=== PATIENT | female | born 1975 | race Caucasian/White ===

== ENCOUNTER 2016-08-25 10:56 | Emergency (ER) | payer MEDICARE, MEDICAID ==
[2016-08-25 11:40] VITALS: BP 124/79
--- NOTE | 2016-08-25 11:58 | UC ---
[facility] Dental HPI - HPI Summary HPI Summary: complaint of dental pain that started yesterday pain has increased upper right jaw and has broken tooth continuously painful has been taking ibuprofen with some relief denies fever and chills - History of Current Complaint Chief Complaint: UCDentalProblem Stated Complaint: TOOTH PAIN Time Seen by Provider: 08/25/16 11:54 Hx Last Menstrual Period: 08/05/16 Aggravating: Heat, Chewing Alleviating: OTC Meds - Allergies/Home Medications Allergies/Adverse Reactions: Allergies Allergy/AdvReac Type Severity Reaction Status Date / Time Butalbital [From Phrenilin] Allergy Mild Rash Verified 08/25/16 11:40 PMH/Surg Hx/FS Hx/Imm Hx Endocrine History Of: Denies: Diabetes, Thyroid Disease Cardiovascular History Of: Reports: Cardiac Disorders - leaky valve, Hypertension Denies: Congestive Heart Failure Respiratory History Of: Denies: COPD, Asthma GI/ History Of: Denies: Ulcer, Renal Disease Neurological History Of: Reports: Seizures Psychological History Of: Reports: Depression - Surgical History Surgical History: None - Family History Known Family History: Positive: Cardiac Disease, Hypertension, Diabetes, Other - father - pancreatic cancer - Social History Occupation: Disabled Lives: With Family Alcohol Use: None Substance Use Type: None Smoking Status (MU): Heavy Every Day Tobacco Smoker Type: Cigarettes Amount Used/How Often: 1 ppd or less Household Exposure Type: Cigarettes Cessation Counseling: Patient Advised to Stop - Immunization History Most Recent Influenza Vaccination: doesn't get Review of Systems Constitutional: Negative Skin: Negative Eyes: Negative ENT: Dental Pain Respiratory: Negative Cardiovascular: Negative Gastrointestinal: Negative Genitourinary: Negative Motor: Negative Neurovascular: Negative Musculoskeletal: Negative Neurological: Negative Psychological: Negative All Other Systems Reviewed And Are Negative: Yes Physical Exam Triage Information Reviewed: Yes Appearance: No Pain Distress, Well-Nourished Vital Signs: Initial Vital Signs Temp 99 F 08/25/16 11:33 Pulse 74 08/25/16 11:33 Resp 20 08/25/16 11:33 BP 124/79 08/25/16 11:33 Pulse Ox 100 08/25/16 11:33 Vital Signs Reviewed: Yes Eyes: Positive: Conjunctiva Clear ENT: Positive: Pharynx normal, TMs normal. Negative: Nasal congestion Dental: Positive: Abscess @ - 4 Respiratory: Positive: Lungs clear, Normal breath sounds, No respiratory distress Cardiovascular: Positive: RRR, No Murmur Abdomen Description: Positive: Nontender, Soft Bowel Sounds: Positive: Present Musculoskeletal: Positive: No Edema Neurological: Positive: Alert Psychological Exam: Normal Skin Exam: Normal Dental Complaint Course/Dx - Differential Dx/Diagnosis Differential Diagnosis/Dx: Dental Abscess, Dental Caries Provider Diagnoses: dental abscess Discharge - Discharge Plan Condition: Stable Disposition: HOME Prescriptions: Amoxicillin CAP* 500 mg PO Q12H #20 cap Naproxen TAB* [Naprosyn TAB*] 500 mg PO Q12H PRN #20 tab PRN Reason: Pain Patient Education Materials: Dental Abscess (ED) Referrals: Gisel Harrington MD [Primary Care Provider] - Additional Instructions: Please take antibiotic as directed. call dentist for further evaluation and treatment. Increase fluids and rest Please review your discharge instructions. If your symptoms do not improve please call your primary care provider or return to urgent care. DENTAL PAIN What Causes Dental Pain? Cavities (tooth decay) are the most common cause of dental pain. Cavities usually happen because of poor oral hygiene, causing bacteria to build up and form plaque. Plaque breaks down the tooth enamel and leads to cavities. If untreated, cavities can lead to tooth abscesses, gum disease, and, finally, loss of the tooth. Prevention of tooth decay is the best way to avoid toothaches. Symptoms Might Include: Aching or sharp pain in the tooth Sensitivity to hot or cold foods and fluids Pain, redness or swelling of the gums Swelling of the face or jaw Treatment Recommendations: Take acetaminophen (Tylenol?) or ibuprofen (Motrin, Advil?) for pain unless you have had a problem with one of the medicines in the past. The healthcare provider may have prescribed an antibiotic medicine. The medicine should be taken until it is completely gone, even if you are feeling better. If you stop taking the medicine early, the infection may not be completely gone, and the medication may not work the next time. Do not place pain-killing tablets on any aching tooth or gum it can cause severe gilbert on the gum. Call Your Doctor or Return Here IF: You start to have severe pain. You start to have swelling in your face or neck. You start to a have fever. You start to have difficulty speaking or swallowing. You have any other new symptoms that worry you.
== END 2016-08-25 12:26 | disposition home or self-care (01) ==
LOC: UCEAST 10:56
DX: K04.7 Periapical abscess without sinus (principal); F17.210 Nicotine dependence, cigarettes, uncomplicated
CPT/HCPCS: 99212; G0463

== ENCOUNTER 2016-08-27 15:28 | Emergency (ER) | payer MEDICARE, MEDICAID ==
[2016-08-27 15:34] VITALS: BP 139/84
[2016-08-27] MEDS ORDERED: Ketorolac INJ* 60 MG/2 ML VIAL IM ONE (16:25)
--- NOTE | 2016-08-27 18:16 | UC ---
Dental HPI - HPI Summary HPI Summary: Patient is a 41yo female with a CC of dental pain and abscess on the right upper jaw. She was seen in 2 days ago, given amoxicillin and naproxen. Patient states neither medication are working and one medication is giving her a "rash." Patient states she gets dental infections every year d/t her broken teeth and a partial which must sit atop of the broken tooth. She is unable to get the tooth fixed d/t medicaid not being accepted at any dental clinics in [place]. She is requesting an antibiotic which needs to be taken 4x daily and states anything less never works for her. She also states the naproxen given to her for pain does not work and she would like stronger pain medications. Denies MELENDREZ, fever. Associates some sinus pressure over the right maxilla with the toothache. - History of Current Complaint Hx Obtained From: Patient Hx Last Menstrual Period: 08/05/16 ?: No Onset/Duration: Gradual Onset Severity: Moderate Pain Intensity: 6 Pain Scale Used: 0-10 Numeric Aggravating: Cold, Chewing Alleviating: Nothing Related History: Previous Dental Care on Same Tooth Dental: 1 - broken/infected tooth <Rubina Grace - Last Filed: 08/27/16 18:10> <Samy Castrejon - Last Filed: 08/27/16 19:04> - History of Current Complaint Chief Complaint: EDDentalPain Stated Complaint: DENTAL PAIN - Allergies/Home Medications Allergies/Adverse Reactions: Allergies Allergy/AdvReac Type Severity Reaction Status Date / Time Butalbital [From Phrenilin] Allergy Mild Rash Verified 08/25/16 11:40 PMH/Surg Hx/FS Hx/Imm Hx Endocrine History Of: Denies: Diabetes, Thyroid Disease Cardiovascular History Of: Reports: Cardiac Disorders - leaky valve, Hypertension Denies: Congestive Heart Failure Respiratory History Of: Denies: COPD, Asthma GI/ History Of: Denies: Ulcer, Renal Disease Neurological History Of: Reports: Seizures Psychological History Of: Reports: Depression - Surgical History Surgical History: None - Family History Known Family History: Positive: Cardiac Disease, Hypertension, Diabetes, Other - father - pancreatic cancer - Social History Alcohol Use: None Substance Use Type: None Smoking Status (MU): Heavy Every Day Tobacco Smoker Type: Cigarettes Amount Used/How Often: 1 ppd or less Have You Smoked in the Last Year: Yes Household Exposure Type: Cigarettes - Immunization History Most Recent Influenza Vaccination: doesn't get <Rubina Grace - Last Filed: 08/27/16 18:10> Review of Systems Constitutional: Negative Skin: Negative Eyes: Negative ENT: Dental Pain, Other - right sided maxillary pain Cardiovascular: Negative Neurovascular: Negative Musculoskeletal: Negative Neurological: Negative Psychological: Negative All Other Systems Reviewed And Are Negative: Yes <Rubina Grace - Last Filed: 08/27/16 18:10> Physical Exam Triage Information Reviewed: Yes Appearance: Well-Appearing, No Pain Distress, Well-Nourished Vital Signs: Initial Vital Signs Temp 97.3 F 08/27/16 15:30 Pulse 89 08/27/16 15:30 Resp 16 08/27/16 15:30 BP 139/84 08/27/16 15:30 Pulse Ox 100 08/27/16 15:30 Vital Signs Reviewed: Yes Eye Exam: Normal Eyes: Positive: Conjunctiva Clear ENT: Positive: Pharynx normal, Other: - denies ear pain Dental: Positive: Percussion Tenderness @ - over maxillary sinus on right side, Gross Decay/Caries @ - all, Dental Fracture @ - upper right, Abscess @ - upper right Neck exam: Normal Neck: Positive: Supple, No Lymphadenopathy Respiratory Exam: Normal Respiratory: Positive: Chest non-tender Cardiovascular Exam: Normal Musculoskeletal Exam: Normal Musculoskeletal: Positive: Strength Intact, ROM Intact Neurological Exam: Normal Neurological: Positive: Alert Psychological: Positive: Age Appropriate Behavior Skin: Positive: rashes - small petechia over dorsum over hands bilaterally, no other rashes noted <Rubina Grace - Last Filed: 08/27/16 18:10> Vital Signs: Initial Vital Signs Temp 97.3 F 08/27/16 15:30 Pulse 89 08/27/16 15:30 Resp 16 08/27/16 15:30 BP 139/84 08/27/16 15:30 Pulse Ox 100 08/27/16 15:30 <Samy Castrejon - Last Filed: 08/27/16 19:04> Dental Complaint Course/Dx - Course Course Of Treatment: Patient educated about importance of dental checkups, mouth hygiene and current dentists who accept medicaid around the area. Patient eduated regarding pain management with chronic dental pain. Provider will give Toradol for pain and change antibiotics to Clindamycin d/t patient request and recent skin reaction noted on hands which might be affiliated with the amoxicillin medication. Patient agrees and DC'd. - Differential Dx/Diagnosis Differential Diagnosis/Dx: Dental Abscess, Dental Caries, Fractured Tooth Provider Diagnoses: Dental pain, Dental Fx, Dental infection - Physician Notification/Consults Instructed by Provider To: Have Pt Call For Appt. - dentist <Rubina Grace - Last Filed: 08/27/16 18:10> Discharge <Rubina Grace - Last Filed: 08/27/16 18:10> <Samy Castrejon - Last Filed: 08/27/16 19:04> - Discharge Plan Condition: Stable Disposition: HOME Prescriptions: Clindamycin Cap(NF) [Cleocin 300 mg Cap(NF)] 300 mg PO TID #20 cap MDD 4 Clindamycin Cap(NF) [Cleocin 300 mg Cap(NF)] 300 mg PO Q6H #20 cap MDD 4 Ketorolac TAB (NF) [Toradol TAB (NF)] 10 mg PO Q6H PRN #20 tab MDD 40 PRN Reason: Pain Ketorolac TAB (NF) [Toradol TAB (NF)] 10 mg PO Q6H #16 tab MDD 4 Patient Education Materials: Clindamycin (By mouth), Dental Abscess (ED) Referrals: Gisel Harrington MD [Primary Care Provider] - Additional Instructions: May take Toradol 4 times daily for up to 5 days. Take clindamycin 4 times daily with meals. Follow up with dentist as outpatient.
--- NOTE | 2016-08-27 19:04 | UC ---
Dental HPI - HPI Summary HPI Summary: Patient is a 41yo female with a CC of dental pain and abscess on the right upper jaw. She was seen in 2 days ago, given amoxicillin and naproxen. Patient states neither medication are working and one medication is giving her a "rash." Patient states she gets dental infections every year d/t her broken teeth and a partial which must sit atop of the broken tooth. She is unable to get the tooth fixed d/t medicaid not being accepted at any dental clinics in [place]. She is requesting an antibiotic which needs to be taken 4x daily and states anything less never works for her. She also states the naproxen given to her for pain does not work and she would like stronger pain medications. Denies MELENDREZ, fever. Associates some sinus pressure over the right maxilla with the toothache. - History of Current Complaint Chief Complaint: EDDentalPain Stated Complaint: DENTAL PAIN Hx Obtained From: Patient Hx Last Menstrual Period: 08/05/16 ?: No Onset/Duration: Gradual Onset Severity: Moderate Pain Intensity: 6 Pain Scale Used: 0-10 Numeric Aggravating: Cold, Chewing Alleviating: Nothing Related History: Previous Dental Care on Same Tooth - Allergies/Home Medications Allergies/Adverse Reactions: Allergies Allergy/AdvReac Type Severity Reaction Status Date / Time Butalbital [From Phrenilin] Allergy Mild Rash Verified 08/25/16 11:40 PMH/Surg Hx/FS Hx/Imm Hx Endocrine History Of: Denies: Diabetes, Thyroid Disease Cardiovascular History Of: Reports: Cardiac Disorders - leaky valve, Hypertension Denies: Congestive Heart Failure Respiratory History Of: Denies: COPD, Asthma GI/ History Of: Denies: Ulcer, Renal Disease Neurological History Of: Reports: Seizures Psychological History Of: Reports: Depression - Surgical History Surgical History: None - Family History Known Family History: Positive: Cardiac Disease, Hypertension, Diabetes, Other - father - pancreatic cancer - Social History Alcohol Use: None Substance Use Type: None Smoking Status (MU): Heavy Every Day Tobacco Smoker Type: Cigarettes Amount Used/How Often: 1 ppd or less Have You Smoked in the Last Year: Yes Household Exposure Type: Cigarettes - Immunization History Most Recent Influenza Vaccination: doesn't get Review of Systems Constitutional: Negative Skin: Negative Eyes: Negative ENT: Dental Pain, Other - right sided maxillary pain Cardiovascular: Negative Neurovascular: Negative Musculoskeletal: Negative Neurological: Negative Psychological: Negative All Other Systems Reviewed And Are Negative: Yes Physical Exam Triage Information Reviewed: Yes Appearance: Well-Appearing, No Pain Distress, Well-Nourished Vital Signs: Initial Vital Signs Temp 97.3 F 08/27/16 15:30 Pulse 89 08/27/16 15:30 Resp 16 08/27/16 15:30 BP 139/84 08/27/16 15:30 Pulse Ox 100 08/27/16 15:30 Vital Signs Reviewed: Yes Eye Exam: Normal Eyes: Positive: Conjunctiva Clear ENT: Positive: Pharynx normal, Other: - denies ear pain Dental: Positive: Percussion Tenderness @ - over maxillary sinus on right side, Gross Decay/Caries @ - all, Dental Fracture @ - upper right, Abscess @ - upper right Neck exam: Normal Neck: Positive: Supple, No Lymphadenopathy Respiratory Exam: Normal Respiratory: Positive: Chest non-tender Cardiovascular Exam: Normal Musculoskeletal Exam: Normal Musculoskeletal: Positive: Strength Intact, ROM Intact Neurological Exam: Normal Neurological: Positive: Alert Psychological: Positive: Age Appropriate Behavior Skin: Positive: rashes - small petechia over dorsum over hands bilaterally, no other rashes noted Dental Complaint Course/Dx - Course Course Of Treatment: Patient educated about importance of dental checkups, mouth hygiene and current dentists who accept medicaid around the area. Patient eduated regarding pain management with chronic dental pain. Provider will give Toradol for pain and change antibiotics to Clindamycin d/t patient request and recent skin reaction noted on hands which might be affiliated with the amoxicillin medication. Patient agrees and DC'd. - Differential Dx/Diagnosis Differential Diagnosis/Dx: Fractured Tooth, Odontogenic Pain, Peridontic Disease Provider Diagnoses: dental pain, dental caries, fractured tooth - Physician Notification/Consults Instructed by Provider To: Have Pt Call For Appt. - dentist Discharge - Discharge Plan Condition: Stable Disposition: HOME Prescriptions: Clindamycin Cap(NF) [Cleocin 300 mg Cap(NF)] 300 mg PO TID #20 cap MDD 4 Clindamycin Cap(NF) [Cleocin 300 mg Cap(NF)] 300 mg PO Q6H #20 cap MDD 4 Ketorolac TAB (NF) [Toradol TAB (NF)] 10 mg PO Q6H PRN #20 tab MDD 40 PRN Reason: Pain Ketorolac TAB (NF) [Toradol TAB (NF)] 10 mg PO Q6H #16 tab MDD 4 Patient Education Materials: Clindamycin (By mouth), Dental Abscess (ED) Referrals: Gisel Harrington MD [Primary Care Provider] - Additional Instructions: May take Toradol 4 times daily for up to 5 days. Take clindamycin 4 times daily with meals. Follow up with dentist as outpatient.
== END 2016-08-27 16:42 | disposition home or self-care (01) ==
LOC: ED 15:28
DX: K04.7 Periapical abscess without sinus (principal); F17.210 Nicotine dependence, cigarettes, uncomplicated; K03.81 Cracked tooth
CPT/HCPCS: 96372; 99282; J1885

== ENCOUNTER 2019-01-07 16:16 | Emergency (ER) | payer MEDICARE, MEDICAID ==
--- OUTSIDE RECORDS SUMMARY | 2019-01-07 16:35 | XMS REPORT | Continuity of Care Document ---
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 [address] PayID: [id number] RALPH Feliciano [id number] Effective: 2016 Policy Number: Medicare - Bswny Umd Annetta Chávez [id number] PayID: [id number] [address] [place] [address] Policy Number: [id number] Medicaid/Computer [employer] Annetta Chávez Group Name: 1 1 [address] PayID: [id number] [place] [address] Advance Directives Description No Information Available Problems Description No Information Family History Date Family Member(s) Observation Comments : (age 55 Father due to Cancer, Years) Pancreatic Father due to Hypertension () Mother Hypertension Mother Diabetes Mother Rheumatoid Arthritis Mother HX Of Lymes Disease Mother Asthma Mother Sleep Apnea Mother Overweight age 56 Social History Type Date Description Comments Sex Unknown Marital Status Single Lives With Son Diet Healthy, Well Balanced 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 Tobacco Use Start: Unknown currently smokes 1/2 Pack Daily ETOH Use Rare Alcohol Use Once Every 3-4 Months Recreational Drug Use Denies Drug Use Recreational Drug Use Former Drug User Recreational Drug Use Formerly used Marijuana sporadically Tobacco Use Start: Unknown Patient is a current smoker, smokes every day Smoking Status Reviewed: 05/05/17 Patient is a current smoker, smokes every day Exercise Type/Frequency exercises regularly Seat Belt/Car Seat always uses seat belt Currently Active sexually active Contraceptive Methods Current .None # Partners in a Lifetime 4 STD's No STD History Allergies, Adverse Reactions, Alerts Active Allergies Reaction Severity Comments Date Phrenilin 01/31/2017 Inactive Allergies NKDA 05/17/2003 Medications Active Medications SIG Qnty Indications Ordering Provider Date Apri 1 by mouth every 168tabs Briana Skinner, 05/05/2017 0.15-30mg-mcg day for three FIELD MARKETING SPECIALIST-C Tablets weeks then start a new pack Lisinopril Take One Tablet 90tabs Marely Mcclain, 20mg Tablets By Mouth Every M.D., R.D. Day Lamotrigine 1 tab by mouth Lorin Lee, 100mg twice daily. 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 max twice a day Naproxen one tab by mouth 60tabs M54.5 Channingwnti R. 11/17/2017 - 500mg Tablets twice daily with Storm, FIELD MARKETING SPECIALIST-C 12/12/2018 food for pain/inflammation Cyclobenzaprine HCL 1 by mouth three 30tabs M54.5 Channingwnti R. 11/17/2017 - 5mg times a day for Storm, FIELD MARKETING SPECIALIST-C 12/12/2018 Tablets muscle spasm, may cause drowsiness Prenatabs Rx 1 PO Daily 90tabs Z00.00 Channingwnti R. 05/05/2017 - 29-1mg Storm, FIELD MARKETING SPECIALIST-C 12/12/2018 Tablets Oxycodone HCL Unknown - 5mg Tablets 05/05/2017 Remeron 1 tab by mouth Unknown - 15mg Tablets every day 05/23/2017 Seroquel 1 by mouth every Unknown - 150mg Tablets night at bedtime 05/23/2017 Baclofen 1 a day as needed Arnaldo Stafford, - 10mg Tablets 05/05/2017 Celebrex take one capsule StaffordArnaldo wong, - 200mg Capsules by mouth a day 05/05/2017 for pain and arthritis Oliva Take 1 Tablet By Unknown - 30mg Tablets Mouth Once as 05/05/2017 Soon as Possible Within 5 Days After Un Immunizations CPT Code Status Date Vaccine Lot # [id number] Given 12/12/2018 Tdap (Adacel) [id number] Refused 12/12/2018 Influenza Virus Vaccine, Quadrivalent, 3 Yr > Quad , Preserv Free [id number] Refused 01/31/2017 Influenza Virus Vaccine, Quadrivalent, 3 Yr > Quad , Preserv Free Vital Signs Date Vital Result Comment 12/12/2018 3:29pm Weight 184.00 lb Weight 83.462 kg BP Systolic 120 mmHg BP Diastolic 80 mmHg Heart Rate 70 /min Body Temperature 98.5 F Respiratory Rate 16 /min Height 69 inches 5'9" BMI (Body Mass Index) 27.2 kg/m2 12/06/2017 3:00pm Weight 170.00 lb Weight 77.112 kg BP Systolic 124 mmHg BP Diastolic 78 mmHg Heart Rate 72 /min Body Temperature 98.5 F Respiratory Rate 16 /min 11/17/2017 1:19pm Weight 164.00 lb Weight 74.390 kg BP Systolic 112 mmHg BP Diastolic 72 mmHg Heart Rate 80 /min Body Temperature 99.3 F Respiratory Rate 16 /min Height 69 inches 5'9" BMI (Body Mass Index) 24.2 kg/m2 05/23/2017 3:45pm Weight 180.00 lb Weight 81.648 kg BP Systolic 120 mmHg BP Diastolic 70 mmHg Heart Rate 64 /min Body Temperature 98.5 F Respiratory Rate 14 /min 05/05/2017 1:30pm Weight 190.00 lb Weight 86.184 kg BP Systolic 110 mmHg BP Diastolic 60 mmHg Heart Rate 64 /min Body Temperature 98.2 F Respiratory Rate 14 /min Height 69.5 inches 5'9.50" BMI (Body Mass Index) 27.7 kg/m2 01/31/2017 10:46am Weight 214.00 lb Weight 97.070 kg BP Systolic 100 mmHg BP Diastolic 60 mmHg Heart Rate 78 /min Body Temperature 97.5 F Respiratory Rate 16 /min Height 70 inches 5'10" BMI (Body Mass Index) 30.7 kg/m2 05/17/2003 1:49pm Weight 206.00 lb Weight 93.442 kg BP Systolic 120 mmHg BP Diastolic 80 mmHg Heart Rate 68 /min Respiratory Rate 18 /min Height 68.50 inches BMI (Body Mass Index) 30.9 kg/m2 Last Menstrual Period [id number] Results Test Date Facility Test Result H/L Range Note CBC Auto Diff 02/23/2018 [facility] White Blood 6.9 10^3/uL N 3.5-10.8 [phone] Count Red Blood Count 4.41 10^6/uL N 4.00-5.40 Hemoglobin 13.7 g/dL N 12.0-16.0 Hematocrit 41 % N 35-47 Mean Corpuscular Volume 92 fL N 80-97 Mean Corpuscular Hemoglobin 31 pg N 27-31 Mean Corpuscular HGB Conc 34 g/dL N 31-36 Red Cell Distribution Width 14 % N 10.5-15 Platelet Count 199 10^3/uL N 150-450 Mean Platelet Volume 7.8 um3 N 7.4-10.4 Abs Neutrophils 4.5 10^3/uL N 1.5-7.7 Abs Lymphocytes 1.7 10^3/uL N 1.0-4.8 Abs Monocytes 0.5 10^3/uL N 0-0.8 Abs Eosinophils 0.2 10^3/uL N 0-0.6 Abs Basophils 0 10^3/uL N 0-0.2 Abs Nucleated RBC 0 10^3/uL Granulocyte % 65.9 % N 38-83 Lymphocyte % 24.3 % Low 25-47 Monocyte % 7.1 % High 0-7 Eosinophil % 2.2 % N 0-6 Basophil % 0.5 % N 0-2 Nucleated Red Blood Cells % 0 Comp Metabolic Panel 02/23/2018 [facility] Sodium 140 mmol/L N 135-145 [phone] Potassium 4.6 mmol/L N 3.5-5.0 Chloride 111 mmol/L N 101-111 Co2 Carbon Dioxide 24 mmol/L N 22-32 Anion Gap 5 mmol/L N 2-11 Glucose 123 mg/dL High 70-100 Blood Urea Nitrogen 16 mg/dL N 6-24 Creatinine 1.10 mg/dL High 0.51-0.95 BUN/Creatinine Ratio 14.5 N 8-20 Calcium 9.0 mg/dL N 8.6-10.3 Total Protein 5.9 g/dL Low 6.4-8.9 Albumin 3.4 g/dL N 3.2-5.2 Globulin 2.5 g/dL N 2-4 Albumin/Globulin Ratio 1.4 N 1-3 Total Bilirubin 0.40 mg/dL N 0.2-1.0 Alkaline Phosphatase 56 U/L N 34-104 Alt 17 U/L N 7-52 Ast 18 U/L N 13-39 Egfr Non- 54.7 >60 Egfr 66.2 >60 1 Laboratory 02/23/2018 [facility] Lamotrigine 0.5 Abnormal 2.5 - 2 test finding [phone] (Lamictal) g/mL 15.0 Topiramate 4.5 g/mL 3 Iron & Iron Binding 12/06/2017 [facility] Iron 35 g /dL Low 50-212 Capacity [phone] Unsaturated Iron Binding 392 g/dL Total Iron Binding Capacity 427 g/dL N 250-450 Transferrin 305 mg/dL N 203-362 % Iron Saturation 8 % Low 15-55 Urine DIP 12/06/2017 In House Lab Leukocytes neg Neg (607)- - Urine Nitrites neg Neg Urobilinogen norm Norm Total Protein, Urine neg Neg Urine pH 7 High 5-6 Urine Blood neg Neg Specific [place] 1.005 Low 1.01-1.02 Urine Ketones neg Neg Urine Bilirubin neg Neg Urine Glucose norm Norm Laboratory test 12/06/2017 [facility] Ferritin 31.2 ng/mL N 11-307 4 finding [phone] Comp Metabolic 12/06/2017 [facility] Sodium 141 mmol/ L N 139-145 Panel [phone] Potassium 4.0 mmol/L N 3.5-5.0 Chloride 108 mmol/L N 101-111 Co2 Carbon Dioxide 26 mmol/L N 22-32 Anion Gap 7 mmol/L N 2-11 Glucose 99 mg/dL N 70-100 Blood Urea Nitrogen 11 mg/dL N 6-24 Creatinine 0.99 mg/dL High 0.51-0.95 BUN/Creatinine Ratio 11.1 N 8-20 Calcium 9.1 mg/dL N 8.6-10.3 Total Protein 6.2 g/dL Low 6.4-8.9 Albumin 3.6 g/dL N 3.2-5.2 Globulin 2.6 g/dL N 2-4 Albumin/Globulin Ratio 1.4 N 1-3 Total Bilirubin 0.30 mg/dL N 0.2-1.0 Alkaline Phosphatase 58 U/L N 34-104 Alt 25 U/L N 7-52 Ast 19 U/L N 13-39 Egfr Non- 61.8 >60 Egfr 79.5 >60 5 Laboratory test 12/06/2017 [facility] Vitamin D 40.7 ng/mL N 20-50 6 finding [phone] Total 25(Oh) Vitamin B12 363 pg/mL N 180-914 7 CBC Auto Diff 12/06/2017 [facility] White Blood 6.6 10^3/uL N 3.5-10.8 [phone] Count Red Blood Count 4.23 10^6/uL N 4.0-5.4 Hemoglobin 13.3 g/dL N 12.0-16.0 Hematocrit 39 % N 35-47 Mean Corpuscular Volume 93 fL N 80-97 Mean Corpuscular Hemoglobin 32 pg High 27-31 Mean Corpuscular HGB Conc 34 g/dL N 31-36 Red Cell Distribution Width 13 % N 10.5-15 Platelet Count 170 10^3/uL N 150-450 Mean Platelet Volume 9.2 um3 N 7.4-10.4 Abs Neutrophils 4.0 10^3/uL N 1.5-7.7 Abs Lymphocytes 1.8 10^3/uL N 1.0-4.8 Abs Monocytes 0.7 10^3/uL N 0-0.8 Abs Eosinophils 0.1 10^3/uL N 0-0.6 Abs Basophils 0 10^3/uL N 0-0.2 Abs Nucleated RBC 0 10^3/uL Granulocyte % 60.4 % N 38-83 Lymphocyte % 27.8 % N 25-47 Monocyte % 10.0 % High 0-7 Eosinophil % 1.3 % N 0-6 Basophil % 0.5 % N 0-2 Nucleated Red Blood Cells % 0 Laboratory test 04/28/2017 [facility] Vitamin D Total 35.9 ng/mL N 30-50 finding [phone] 25(Oh) Lipid Profile 04/28/2017 [facility] Triglycerides 110 mg/dL N 8 (Trig/Chol/HDL) [phone] Cholesterol 196 mg/dL N 9 HDL Cholesterol 55.7 mg/dL N 10 LDL Cholesterol 118 mg/dL N 11 Comp Metabolic Panel 04/28/2017 [facility] Sodium 139 mmol/L N 133-145 [phone] Potassium 3.9 mmol/L N 3.5-5.0 Chloride 110 mmol/L N 101-111 Co2 Carbon Dioxide 22 mmol/L N 22-32 Anion Gap 7 mmol/L N 2-11 Glucose 110 mg/dL High 70-100 Blood Urea Nitrogen 10 mg/dL N 6-24 Creatinine 1.03 mg/dL High 0.51-0.95 BUN/Creatinine Ratio 9.7 N 8-20 Calcium 9.7 mg/dL N 8.6-10.3 Total Protein 6.9 g/dL N 6.4-8.9 Albumin 4.1 g/dL N 3.2-5.2 Globulin 2.8 g/dL N 2-4 Albumin/Globulin Ratio 1.5 N 1-3 Total Bilirubin 0.40 mg/dL N 0.2-1.0 Alkaline Phosphatase 72 U/L N 34-104 Alt 21 U/L N 7-52 Ast 24 U/L N 13-39 Egfr Non- 59.3 N >60 Egfr 76.3 N >60 12 CBC Auto Diff 04/28/2017 [facility] White Blood 6.6 10^3/uL N 3.5-10.8 [phone] Count Red Blood Count 3.92 10^6/uL Low 4.0-5.4 Hemoglobin 11.2 g/dL Low 12.0-16.0 Hematocrit 35 % N 35-47 Mean Corpuscular Volume 89 fL N 80-97 Mean Corpuscular Hemoglobin 29 pg N 27-31 Mean Corpuscular HGB Conc 32 g/dL N 31-36 Red Cell Distribution Width 16 % High 10.5-15 Platelet Count 198 10^3/uL N 150-450 Mean Platelet Volume 9 um3 N 7.4-10.4 Abs Neutrophils 4.1 10^3/uL N 1.5-7.7 Abs Lymphocytes 1.7 10^3/uL N 1.0-4.8 Abs Monocytes 0.6 10^3/uL N 0-0.8 Abs Eosinophils 0.1 10^3/uL N 0-0.6 Abs Basophils 0 10^3/uL N 0-0.2 Abs Nucleated RBC 0.01 10^3/uL N Granulocyte % 62.7 % N 38-83 Lymphocyte % 26.0 % N 25-47 Monocyte % 8.7 % N 1-9 Eosinophil % 2.1 % N 0-6 Basophil % 0.5 % N 0-2 Nucleated Red Blood Cells % 0.1 N Laboratory test 05/17/2003 [facility] Thin Layer REC' D-SEE finding [phone] Pap W/Reflex IMAGE To HPV For ASCUS GC/Chlamydia 05/17/2003 [facility] Chlamydia By NEGATIVE Negative 13 Dna Probe [phone] Dna Probe GC By Dna Probe NEGATIVE Negative 14 Protime 05/17/2003 [facility] Inr 1.00 15 [phone] Protime 11.8 SEC 10.7-13.1 Laboratory test 05/17/2003 [facility] PTT (Aptt) 26.8 SEC 20.6-31.5 16 finding [phone] CBC With 05/17/2003 [facility] Platelet Count 239 CUMM 150-450 Electronic Diff [phone] White Blood Count 10.6 CUMM 4.8-10.8 Hematocrit 41 % 35-47 Hemoglobin 13.7 g/dL 12.0-16.0 Mean Corpuscular HGB Cone 33 g/dL 32-36 Mean Corpuscular Hemoglob 28 pg 27-31 Mean Corpuscular Volume 84 um3 79-97 Mean Platelet Volume 9.0 um3 7.4-10.4 Red Cell Count 4.92 CUMM 4.2-5.4 Redcell Distribution WDTH 16 % High 10.5-15 Comp Metabolic 05/17/2003 [facility] Anion Gap 9.0 mmol/L 2-11 17 Panel [phone] Albumin/Globulin Ratio 1.2 1-3 Albumin 4.0 GM/DL 3.6-5.4 Alkaline Phosphatase 66 U/L 30-110 Alt (SGPT) 24 U/L 14-54 Ast (Sgot) 32 U/L 12-42 BUN 4 mg/dL Low 6-24 Calcium 9.8 mg/dL 8.7-10.2 Chloride 107 mmol/L 101-111 Co2 (Carbon Dioxide) 24.0 mmol/L 22-32 Creatinine 1.0 mg/dL 0.5-1.4 Globulin 3.3 GM/DL 2-4 Glucose 93 mg/dL 70-105 Potassium 4.1 mmol/L 3.5-5.0 Sodium 140 mmol/L 135-145 Bilirubin Total 0.8 mg/dL 0.4-1.5 Total Protein 7.3 GM/DL 6.2-8.1 BUN/Creatinine Ratio 4.0 Low 8-20 Laboratory test 05/17/2003 [facility] TSH 0.09 MIU/ ML Low 0.34-5.60 finding [phone] CBC With Manual 05/17/2003 [facility] Anisocytosis 1 + Diff [phone] Eosenophil 1 % 0-6 Lymphocyte 22 % 5-47 Monocyte 4 % 0-13 Polysegmented Neutrophil 73 % 38-83 Laboratory test finding 05/17/2003 In House Lab Test, Urine NEG (607)- - Urine DIP 05/17/2003 In House Lab Leukocytes NEG Neg (607)- - Urine Nitrites NEG Neg Urine pH 5 5-6 Total Protein, Urine NEG Neg Urine Glucose NORM Norm Urine Ketones NEG Neg Urobolinogen NORM Norm Urine Bilirubin NEG Neg Urine Blood NEG Neg Laboratory test finding 05/17/2003 In House Lab Hemoglobin 12.6 (607)- - 1 Because ethnic data is not always readily available, this report includes an eGFR for both -Americans and non- Americans. The National Kidney Disease Education Program (NKDEP) does not endorse the use of the MDRD equation for patients that are not between the ages of 18 and 70, are , have extremes of body size, muscle mass, or nutritional status, or are non- or non-. According to the National Kidney Foundation, irrespective of diagnosis, the stage of the disease is based on the level of kidney function: Stage Description GFR(mL/min/1.73 m(2)) 1 Kidney damage with normal or decreased GFR 90 2 Kidney damage with mild decrease in GFR 60-89 3 Moderate decrease in GFR 30-59 4 Severe decrease in GFR 15-29 5 Kidney failure <15 (or dialysis) 2 ADDITIONAL INFORMATION This test was developed and its performance characteristics determined by [facility] in a manner consistent with CLIA requirements. This test has not been cleared or approved by the U.S. Food and Drug Administration. Test Performed by: [facility] [employer] - [address] [address] 3 REFERENCE VALUE Reference values depend on clinical use: Anticonvulsant: 5.0-20.0 mcg/mL Psychiatric: 2.0-8.0 mcg/mL ADDITIONAL INFORMATION This test was developed and its performance characteristics determined by [facility] in a manner consistent with CLIA requirements. This test has not been cleared or approved by the U.S. Food and Drug Administration. Test Performed by: [facility] [employer] - [address] [address] 4 [id number] 5 Because ethnic data is not always readily available, this report includes an eGFR for both -Americans and non- Americans. The National Kidney Disease Education Program (NKDEP) does not endorse the use of the MDRD equation for patients that are not between the ages of 18 and 70, are , have extremes of body size, muscle mass, or nutritional status, or are non- or non-. According to the National Kidney Foundation, irrespective of diagnosis, the stage of the disease is based on the level of kidney function: Stage Description GFR(mL/min/1.73 m(2)) 1 Kidney damage with normal or decreased GFR 90 2 Kidney damage with mild decrease in GFR 60-89 3 Moderate decrease in GFR 30-59 4 Severe decrease in GFR 15-29 5 Kidney failure <15 (or dialysis) 6 [id number] Normal Range 180 to 914 Indeterminate Range 145 to 180 Deficient Range <145 8 Desirable <150 Borderline high 150-199 High 200-499 Very High >500 9 Desirable <200 Borderline high 200-239 High >239 10 Low <40 Desirable: 40-60 High: >60 11 Desirable: <100 mg/dL Near Optimal: 100-129 mg/dL Borderline High: 130-159 mg/dL High: 160-189 mg/dL Very High: >189 mg/dL 12 Because ethnic data is not always readily available, this report includes an eGFR for both -Americans and non- Americans. The National Kidney Disease Education Program (NKDEP) does not endorse the use of the MDRD equation for patients that are not between the ages of 18 and 70, are , have extremes of body size, muscle mass, or nutritional status, or are non- or non-. According to the National Kidney Foundation, irrespective of diagnosis, the stage of the disease is based on the level of kidney function: Stage Description GFR(mL/min/1.73 m(2)) 1 Kidney damage with normal or decreased GFR 90 2 Kidney damage with mild decrease in GFR 60-89 3 Moderate decrease in GFR 30-59 4 Severe decrease in GFR 15-29 5 Kidney failure <15 (or dialysis) 13 * This method is approved for detection of Chlamydia trachomatis in Endocervical, Male Urethral and Conjunctival Specimens only. POSITIVE RESULT IN A POPULATION WITH LOW PREVALENCE OF DISEASE SHOULD BE INTERPRETED PRESUMPTIVE; INTERPRET RESULTS IN LIGHT OF HISTORY PHYSICAL FINDINGS . 14 * This method is approved for detection of Neisseria Gonnorrhoeae in Endocervical and Male Urethral Specimens only. POSITIVE RESULT IN A POPULATION WITH LOW PREVALENCE OF DISEASE SHOULD BE INTERPRETED PRESUMPTIVE; INTERPRET RESULTS IN LIGHT OF HISTORY PHYSICAL FINDINGS. . 15 ANUSHKA VALUE=1.86 ( OF 08/27/02) Recommended INR for Patients on Oral Anticoagulants Prophylaxis 2.0 - 3.0 Treatment of thrombosis 2.0 - 3.0 Prevention of embolism 2.0 - 3.0 Prevention of embolism from prosthetic heart valves 2.5 - 3.5 16 Please note change in reference range 17 Anion gap measurement may be of limited value in the presence of any alkalosis, especially in a combined acid base disorder. . Procedures Date Code Description Status 12/12/2018 42656 Brief Emotional/Behav Assessment W/ Scoring Doc Per Completed Standard Inst Encounters Type Date Location Provider Dx Diagnosis Office Visit 12/06/2017 3:00p Main Office Dayami Hurtado NP M54.5 Low back pain R11.2 Nausea with vomiting, unspecified R53.83 Other fatigue R32 Unspecified urinary incontinence Office Visit 11/17/2017 1:30p Main Office Briana Ledezma M54.5 Low back pain Storm, FIELD MARKETING SPECIALIST-C Office Visit 05/23/2017 3:30p Main Office Luiz K12.0 Recurrent oral HeetderMD jeana aphthae Office Visit 05/05/2017 1:30p Main Office Briana Ledezma Z00.00 Encntr for general Storm, FIELD MARKETING SPECIALIST-C adult medical exam w/o abnormal findings Office Visit 01/31/2017 10:15a Main Office Briana Ledezma I10 Essential ( primary) Storm, FIELD MARKETING SPECIALIST-C hypertension Office Visit 05/17/2003 1:30p Main Office Antonieta Loaiza V70.0 Examination General [facility], Medical Routine AT [facility] V72.3 Examination Gynecological 626.2 Menstruation Excessive Or Frequent V69.2 Sexual Behavior High Risk Plan of Treatment 12/12/2018 - Briana Skinner, FIELD MARKETING SPECIALIST-CZ00.00 Encounter for general adult medical examination without abnoComments:The patient presents to the office for her annual wellness visit. Health screening exams:Mammogram:ordered PAP: DeclinesImmunizations: Tdap todayLab test: ordered Healthy diet and increased physical activity was discussed with the patient. She will follow up again in one years time or sooner if needed.Recommendations:proper diet and exercise are very important for overall health. You should eat at least 5 servings of fruits and vegetables every day, this can be fresh or frozen. You should try to get at least 24 grams of fiber in your diet each day, this can be found in whole grains like wheat, brown rice, oats, Quinoa and fruits and vegetables. You should choose lean proteins such as fish, poultry, beans and legumes. You also need at least 4 servings of calcium rich foods daily, this can be in a supplement, dairy or broccoli. You should get at least 30 minutes of exercise on a daily basis, choose activities that make you feel winded but still able to talk, you should sweat and your heart rate should go up. If you have chest pain you should stop. If you can not do thirty minutes of exercise then do what you can and work towards this goal.
--- OUTSIDE RECORDS SUMMARY | 2019-01-07 16:36 | XMS REPORT | Continuity of Care Document ---
:1975 External Reference #:[id number] Author Name Jumana Goodwin Care Team Providers Name Role Phone Luiz Velarde MD Primary Care Physician Unavailable Payers Date Identification Numbers Payment Provider Subscriber Effective: 2008 Policy Number: [id number] Medicare Annetta Chávez PayID: [id number] [address] [place] [address] Policy Number: [id number] Medicaid Annetta Chávez Group Name: [id number] [address] PayID: [id number] [place] [address] Advance Directives Description No Information Available Problems Active Problems Provider Date Mixed anxiety and depressive disorder Gisel Harrington M.D. Onset: 11/14/2013 Epilepsy Gisel Harrington M.D. Onset: 11/14/2013 Chronic pain syndrome Gisel Harrington M.D. Onset: 11/14/2013 Tobacco user Gisel Harrington M.D. Onset: 10/29/2014 Note: 23 pk yr Insomnia Gisel Harrington M.D. Onset: 10/29/2014 Impaired fasting glycaemia Gilmer Gomez NP Onset: 11/19/2015 Note: 105 Peripheral venous insufficiency Gilmer Gomez NP Onset: 09/23/2016 Note: BLE R>L: consulted w/ vascular recommended compression stockings. to f/ u w/ vascular in 6 weeks. 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 Onset: 2017 complex partial seizures Migraine without aura, not refractory Corey Wilson M.D. Onset: 2017 Nausea and vomiting Corey Wilson M.D. Onset: 06/02/2018 Generalized convulsive epilepsy Corey Wilson M.D. Onset: 04/03/2018 Family History Date Family Member(s) Observation Comments : (age 55 Father due to Cancer, Years) Pancreatic Father Hypertension Mother due to CHF () Mother Coronary Artery Disease (CAD) : (age 54 Mother due to COPD Years) Siblings 4 1 brother - HTN 1 sister - HTN Onset: (age 59 [address]aternal [address]cles [place] paternal uncle Years) Paternal Uncles Paternal Uncle [place] at age 53 Social History Type Date Description Comments Sex Unknown Marital Status Lives With Lives With Children Occupation Disabled Tobacco Use Start: Unknown currently smokes 1/2 Pack Daily Smoking Status Reviewed: 12/12/18 currently smokes 1/2 Pack Daily ETOH Use Denies alcohol use Tobacco Use Start: Unknown Patient is a current 1/2 ppd cigarettes smoker, smokes every day Recreational Drug Use Denies Drug Use Exercise Type/Frequency 08/25/2016 Exercises rarely Allergies, Adverse Reactions, Alerts Active Allergies Reaction Severity Comments Date Phrenilin 11/23/2007 Medications Active Medications SIG Qnty Indications Ordering Provider Date Lamotrigine 1 tab by mouth 90tabs G40.409 Coery Wilson, 06/17/2016 100mg in Am; 2 tabs in M.D. Tablets PM Lisinopril 1 by mouth every 90tabs I10 Gilmer Gomez, CONCEPCION 04/30/2016 20mg day Tablets Ibuprofen as needed M25.551 Unknown 200mg Capsules Viibryd 1 by mouth every Unknown 20mg Tablets day Topiramate 1 tab by mouth 90tabs G40.409 Corey Wilson, 200mg every morning M.D. Tablets and 2 tabs by mouth every night Juleber by mouth Unknown 0.15-30mg-mcg everyday Tablets History Medications Topiramate 1 by mouth twice 30tabs Lorin Senior 10/29/2016 - 100mg Tablets a day (take in Shakila Lee 12/30/2016 addition to the 200mg tablets) Cyclobenzaprine HCL take 1 tablet by 90tabs M54.5 Gilmer Gomez 2016 - 5mg mouth up to three PERSONNEL ADMINISTRATOR 01/13/2017 Tablets times a day as needed for muscle spasm Pts states this is 10 MG Fioricet 1 by mouth every 30caps G43.009 Gilmer Jason, 03/09/2016 - 50-300-40mg 4 hours as needed PERSONNEL ADMINISTRATOR 12/30/2016 Capsules headache mdd:6; 2 days/wk Lamotrigine 2-4 tabs by mouth 120tabs G40.409 Lorin Senior 12/18/2015 - 25mg Tablets every day as Shakila Lee 06/17/2016 directed Ergocalciferol 1 tab by mouth 8caps Gisel Harrington, 01/20/2015 - [id number] every week M.DVivi 10/21/2015 Capsules Keppra 1 by mouth twice 60tabs 345.41 Lorin Senior 01/09/2015 - 500mg Tablets a day Shakila Lee 03/25/2015 Lisinopril 1 by mouth every 90tabs I10 Gisel Harrington, 07/08/2014 - 10mg Tablets day M.DVivi 04/30/2016 Ergocalciferol 1 tab by mouth 8caps 268.9 Gisel Harrington, 12/26/2013 - [id number] every week MViviDVivi 07/08/2014 Capsules Atenolol 1 po qd 30tabs Adithyatatana S. 02/02/2008 - 25mg Tablets Shakila Thao 11/14/2013 Celebrex 1 PO bid 90caps Araceli S. 11/23/2007 - 200mg Capsules Shakila Thao 07/08/2014 Soma 1 PO qid prn 60tabs Araceli SVivi 11/23/2007 - 350mg Tablets Shakila Thao 12/26/2013 Imitrex Q2H prn MDD2 9tabs Adithyatatana S. 11/23/2007 - 100mg Tablets Shakila Thao 07/08/2014 Hydrocodone/Acetaminop 1 to 2 q 4 hr prn Adithyatayblm S. 11/23/2007 - hen Shakila Thao 11/14/2013 10/325 Tablets Omeprazole 2 PO qd 30caps Qutayblm S. 11/23/2007 - 20mg Capsules Shakila Thao 07/08/2014 Albuterol 2 Puffs qid prn 5units Araceli S. 11/23/2007 - 90mcg/Act Shakila Thao 11/14/2013 Aerosol Chantix Use Per 1Pack Qutaybeh S. 11/23/2007 - Starting Month Directions Shakila Thao 11/23/2007 Pack Misc Valium 1 PO tid prn 10tabs Adithyatayblm S. 11/23/2007 - 5mg Tablets Shakila Thao 11/14/2013 Percocet 1 Q4H prn 180tabs Araceli S. 11/23/2007 - 10-325mg Tablets Shakila Thao 11/23/2007 Klonopin 1 to 2 hs prn 60tabs Mariposayblm S. 11/23/2007 - 1mg Tablets Shakila Thao 11/14/2013 Topamax 1 PO bid Mariposayblm S. 11/23/2007 - 200mg Tablets Shakila Thao 11/14/2013 Lyrica 1 to 2 hs 14caps Araceli S. 11/23/2007 - 25mg Capsules Shakila Thao 11/14/2013 Seroquel 1 to 2 po bid prn 60tabs Adithyatayblm S. 11/23/2007 - 50mg Tablets Shakila Thao 11/14/2013 Cymbalta PO qd 60caps Mariposayblm S. 11/23/2007 - 30mg Caps DR PARKER Thao M.D. 11/14/2013 Vitamin D one po bid Adithyataybeh S. 11/23/2007 - 1000unit Shakila Thao 11/14/2013 Pre-Jimena Formula 1 tab po qd Unknown - 12/11/2018 Tablets Celecoxib 1 by mouth every Unknown - 200mg Capsules day 01/13/2017 Oxycodone HCL 1-2 tabs by mouth Unknown - 5mg Tablets every 4-6 hours 01/13/2017 as needed Hydrocodone-Acetaminop take 1 tablet Unknown - hen every 6 hours if 04/30/2016 5-325mg Tablets needed pain Amoxicillin/Clavulanat take 1 tablet by Unknown - e Potassium mouth twice a day 04/30/2016 875-125mg for 10 days Tablets Vitamin B-12 1 tablet daily Unknown - 1000mcg 04/30/2016 D3-1000 1 tablet daily Unknown - 1000Unit Capsules 04/30/2016 Calcium 600 High 1 tab by mouth Unknown - Potency daily 04/30/2016 600mg Tablets Remeron 1 by mouth at Unknown - 15mg Tablets bedtime 09/21/2017 Seroquel 1/2 tablet by Unknown - 300mg Tablets mouth daily at 09/21/2017 bedtime for sleep Tylenol as needed Unknown - 325mg Tablets 06/01/2018 Nexplanon Unknown - 68mg Implant 08/18/2016 Lisinopril 1 by mouth every 90tabs Unknown - 5mg Tablets day 12/26/2013 Klor-Con M10 1 by mouth every 30tabs Unknown - 10Meq day 12/26/2013 Tablets ER Mirtazapine take one tablet 90tabs Unknown - 15mg Tablets by mouth hs 01/08/2015 Dispers Quetiapine Fumarate 1-3 tabs po hs 30tabs Unknown - 100mg prn 01/08/2015 Tablets Immunizations CPT Code Status Date Vaccine Lot # [id number] Refused 07/29/2014 Flu Vaccine Split Virus Preservative Free For Indiv 3Yr Older Vital Signs Date Vital Result Comment 12/12/2018 10:45am Height 70 inches 5'10" Weight 176.00 lb Heart Rate 64 /min BP Systolic 122 mmHg BP Diastolic 78 mmHg BMI (Body Mass Index) 25.3 kg/m2 06/02/2018 3:52pm Height 70 inches 5'10" Weight 168.00 lb Heart Rate 70 /min BP Systolic Sitting 118 mmHg BP Diastolic Sitting 78 mmHg Respiratory Rate 16 /min BMI (Body Mass Index) 24.1 kg/m2 04/03/2018 3:16pm Height 69 inches 5'9" Weight 169.00 lb Heart Rate 64 /min BP Systolic 100 mmHg BP Diastolic 62 mmHg Respiratory Rate 16 /min BMI (Body Mass Index) 25.0 kg/m2 03/22/2018 1:30pm Height 69 inches 5'9" Weight 171.00 lb w/ shoes Heart Rate 66 /min BP Systolic Sitting 126 mmHg lue reg cuff BP Diastolic Sitting 84 mmHg lue reg cuff BMI (Body Mass Index) 25.2 kg/m2 Ejection Fraction 60-65% echo 11/21/15 02/20/2018 10:34am Height 69 inches 5'9" Weight 165.00 lb Heart Rate 58 /min BP Systolic 122 mmHg BP Diastolic 60 mmHg Respiratory Rate 14 /min BMI (Body Mass Index) 24.4 kg/m2 09/22/2017 10:00am Height 69 inches 5'9" Weight 172.25 lb Heart Rate 77 /min BP Systolic Sitting 122 mmHg BP Diastolic Sitting 86 mmHg Respiratory Rate 15 /min BMI (Body Mass Index) 25.4 kg/m2 12/31/2016 8:17am Height 69 inches 5'9" Weight 231.25 lb with shoes Heart Rate 78 /min BP Systolic Sitting 130 mmHg LA lrg cuff BP Diastolic Sitting 80 mmHg LA lrg cuff BMI (Body Mass Index) 34.1 kg/m2 Ejection Fraction 60% - 65% echo 11/21/15 11/16/2016 8:58am Height 69 inches 5'9" Weight 240.00 lb Heart Rate 68 /min BP Systolic Sitting 104 mmHg BP Diastolic Sitting 66 mmHg Respiratory Rate 14 /min BMI (Body Mass Index) 35.4 kg/m2 08/25/2016 7:59am Height 69 inches 5'9" Weight 257.00 lb Heart Rate 96 /min BP Systolic Sitting 108 mmHg BP Diastolic Sitting 84 mmHg Body Temperature 98.0 F O2 % BldC Oximetry 97 % BMI (Body Mass Index) 37.9 kg/m2 06/17/2016 8:34am Height 69 inches 5'9" Weight 254.00 lb Heart Rate 56 /min BP Systolic Sitting 114 mmHg BP Diastolic Sitting 76 mmHg Respiratory Rate 14 /min BMI (Body Mass Index) 37.5 kg/m2 04/30/2016 12:54pm Height 69 inches 5'9" Weight 264.12 lb Heart Rate 80 /min BP Systolic Sitting 150 mmHg BP Diastolic Sitting 94 mmHg Body Temperature 97.4 F O2 % BldC Oximetry 98 % BMI (Body Mass Index) 39.0 kg/m2 03/09/2016 11:31am Height 69 inches 5'9" Weight 267.12 lb Heart Rate 78 /min BP Systolic Sitting 120 mmHg BP Diastolic Sitting 74 mmHg Body Temperature 98.4 F O2 % BldC Oximetry 98 % BMI (Body Mass Index) 39.4 kg/m2 12/25/2015 9:38am Height 70 inches 5'10" Weight 265.00 lb with shoes Heart Rate 70 /min BP Systolic 148 mmHg Ra lrg cuff BP Diastolic 92 mmHg Ra lrg cuff BMI (Body Mass Index) 38.0 kg/m2 Ejection Fraction 60% - 65% 12/18/2015 1:55pm Height 70 inches 5'10" Heart Rate 64 /min BP Systolic Sitting 154 mmHg BP Diastolic Sitting 84 mmHg Respiratory Rate 16 /min 11/04/2015 9:12am Height 70 inches 5'10" Weight 272.00 lb with shoes Heart Rate 86 /min BP Systolic Sitting 132 mmHg LA, regular cuff BP Diastolic Sitting 90 mmHg LA, regular cuff BMI (Body Mass Index) 39.0 kg/m2 Ejection Fraction 55-60% echo 01/29/1990 10/21/2015 8:03am Height 70 inches 5'10" Weight 270.38 lb Heart Rate 86 /min BP Systolic Sitting 134 mmHg BP Diastolic Sitting 80 mmHg Body Temperature 97.2 F O2 % BldC Oximetry 96 % BMI (Body Mass Index) 38.8 kg/m2 04/14/2015 10:37am Height 70 inches 5'10" Weight 270.00 lb Heart Rate 70 /min BP Systolic Sitting 140 mmHg BP Diastolic Sitting 82 mmHg Body Temperature 98.6 F O2 % BldC Oximetry 96 % BMI (Body Mass Index) 38.7 kg/m2 03/25/2015 10:04am Height 70 inches 5'10" Weight 269.00 lb Heart Rate 66 /min BP Systolic Sitting 118 mmHg BP Diastolic Sitting 74 mmHg O2 % BldC Oximetry 94 % BMI (Body Mass Index) 38.6 kg/m2 01/09/2015 10:58am Height 70 inches 5'10" Weight 272.00 lb Heart Rate 64 /min BP Systolic Sitting 132 mmHg BP Diastolic Sitting 78 mmHg Respiratory Rate 16 /min BMI (Body Mass Index) 39.0 kg/m2 10/14/2014 11:10am Weight 264.00 lb Heart Rate 71 /min BP Systolic 137 mmHg BP Diastolic 92 mmHg Body Temperature 98.5 F 07/29/2014 9:58am Weight 253.50 lb Heart Rate 79 /min BP Systolic Sitting 132 mmHg BP Diastolic Sitting 85 mmHg 07/08/2014 11:43am Weight 247.50 lb Heart Rate 70 /min BP Systolic Sitting 154 mmHg BP Diastolic Sitting 90 mmHg 05/06/2014 11:28am Weight 226.00 lb Heart Rate 78 /min BP Systolic Sitting 124 mmHg BP Diastolic Sitting 80 mmHg Body Temperature 98.9 F 12/26/2013 1:49pm Weight 198.00 lb Heart Rate 74 /min BP Systolic Sitting 138 mmHg BP Diastolic Sitting 82 mmHg 11/14/2013 1:05pm Height 70 inches 5'10" Weight 179.00 lb Heart Rate 78 /min BP Systolic Sitting 105 mmHg BP Diastolic Sitting 70 mmHg Body Temperature 99.5 F BMI (Body Mass Index) 25.7 kg/m2 02/02/2008 1:50pm Height 70 inches 5'10" Weight 137.00 lb Heart Rate 72 /min BP Systolic Sitting 120 mmHg L BP Diastolic Sitting 60 mmHg L BMI (Body Mass Index) 19.7 kg/m2 11/23/2007 10:04am Height 70 inches 5'10" Weight 60.00 lb Heart Rate 85715 /min BP Systolic Sitting 120 mmHg L BP Diastolic Sitting 80 mmHg L BMI (Body Mass Index) 8.6 kg/m2 Results Test Date Facility Test Result H/L Range Note CBC Auto Diff 02/23/2018 [facility] White Blood 6.9 10^3/uL N 3.5-10.[address] [place] [address] [phone] Red Blood Count 4.41 10^6/uL N 4.00-5.40 [...] Cells % 0 Comp Metabolic Panel 02/23/2018 [facility] Sodium 140 mmol/L N 135-[address] [place] [address] [phone] Potassium 4.6 mmol/L N 3.5-5.0 Chloride 111 [...] >60 Egfr 66.2 >60 1 Laboratory 02/23/2018 [facility] Lamotrigine 0.5 Abnormal 2.5 - [address] (Lamictal) g/mL 15.0 [place] [address] [phone] Topiramate 4.5 g/mL 3 Laboratory test 12/17/2015 [facility] TSH (Thyroid 0.34 ?IU/mL N 0.34-5.[address] Stim Horm) [place] [address] [phone] T3 Free 3.60 pg/mL N 2.5-3.9 Free T4 (Free Thyroxine) 0.69 ng/dL N 0.61-1.12 FSH And LH 12/17/2015 [facility] FSH (Follicle Stim 6.4 mIU/mL N [address] Hormone) [place] [address] [phone] LH (Lutenizing Hormone) 11.2 ?IU/mL N 5 Laboratory test 12/17/2015 [facility] Cortisol 12.84 ?g/dL N [address] [place] [address] [phone] CBC Auto Diff 12/03/2015 [facility] White Blood 7.0 10^3/uL N 3.5-[address] Count .8 [place] [address] [phone] Red Blood Count 4.54 10^6/uL N 4.0-5.4 Hemoglobin 14.0 g/dL N 12.0-16.0 Hematocrit 43 % N 35-47 Mean Corpuscular Volume 94 fL N 80-97 Mean Corpuscular Hemoglobin 31 pg N 27-31 Mean Corpuscular HGB Conc 33 g/dL N 31-36 Red Cell Distribution Width 14 % N 10.5-15 Platelet Count 194 10^3/uL N 150-450 Mean Platelet Volume 9 um3 N 7.4-10.4 Abs Neutrophils 5.0 10^3/uL N 1.5-7.7 Abs Lymphocytes 1.4 10^3/uL N 1.0-4.8 Abs Monocytes 0.5 10^3/uL N 0-0.8 Abs Eosinophils 0.1 10^3/uL N 0-0.6 Abs Basophils 0 10^3/uL N 0-0.2 Abs Nucleated RBC 0 10^3/uL N Granulocyte % 71.5 % N 38-83 Lymphocyte % 20.1 % Low 25-47 Monocyte % 7.1 % N 1-9 Eosinophil % 0.8 % N 0-6 Basophil % 0.5 % N 0-2 Nucleated Red Blood Cells % 0 N Laboratory test finding 12/03/2015 [facility] Ammonia 26 ?mol/L N 16-[address] [place] [address] [phone] Lactic Acid 1.7 mmol/L N 0.5-2.0 7 Inr/Protime 12/03/2015 [facility] Inr 0.98 N 0.89-1.[address] [place] [address] [phone] Laboratory test 12/03/2015 [facility] Partial 31.6 N 26.0- 36.[address] [place] [address] PTT [phone] Laboratory test 12/03/2015 [facility] Point of Care 103 mg/dL N 74-[address] [place] [address] [phone] Laboratory test 12/03/2015 [facility] HCG < 0.60 N [address] mIU/[place] [address] [phone] Acetaminophen < 15 g/mL N 10 Alcohol < 10 mg/dL N <10 TSH (Thyroid Stim Horm) 0.60 ?IU/mL N 0.34-5.60 CKMB 12/03/2015 [facility] CKMB ng/mL 3.3 ng/mL N 0.6-6.[address] [place] [address] [phone] Laboratory test 12/03/2015 [facility] Magnesium 1.8 mg/dL Low 1.9-2.[address] [place] [address] [phone] Creatine Kinase(CK) 120 U/L N 10-223 C Reactive Protein 2.21 mg/L N < 5.00 11 Troponin-I (TnI) 0.01 ng/mL N <0.03 12 Comp Metabolic Panel 12/03/2015 [facility] Sodium 137 mmol/L N 133-[address] [place] [address] [phone] Potassium 4.1 mmol/L N 3.5-5.0 Chloride 107 mmol/L N 101-111 Co2 Carbon Dioxide 22 mmol/L N 22-32 Anion Gap 8 mmol/L N 2-11 Glucose 98 mg/dL N 70-100 Blood Urea Nitrogen 12 mg/dL N 6-24 Creatinine 1.08 mg/dL High 0.51-0.95 BUN/Creatinine Ratio 11.1 N 8-20 Calcium 9.2 mg/dL N 8.6-10.3 Total Protein 6.9 g/dL N 6.4-8.9 Albumin 3.9 g/dL N 3.2-5.2 Globulin 3.0 g/dL N 2-4 Albumin/Globulin Ratio 1.3 N 1-3 Total Bilirubin 0.50 mg/dL N 0.2-1.0 Alkaline Phosphatase 61 U/L N 34-104 Alt 24 U/L N 7-52 Ast 29 U/L N 13-39 Egfr Non- 56.5 N >60 Egfr 72.6 N >60 13 Liver Function 11/19/2015 [facility] Total Protein 6.6 g/dL N 6.4-8.[address] [place] [address] [phone] Albumin 3.8 g/dL N 3.2-5.2 Globulin 2.8 g/dL N 2-4 Albumin/Globulin Ratio 1.4 N 1-3 Total Bilirubin 0.30 mg/dL N 0.2-1.0 Direct Bilirubin 0.10 mg/dL N 0.03-0.18 Indirect Bilirubin 0.2 mg/dL Low 0.3-1.0 Alkaline Phosphatase 65 U/L N 34-104 Alt 27 U/L N 7-52 Ast 23 U/L N 13-39 CBC Auto Diff 11/19/2015 [facility] White Blood 5.8 10^3/uL N 3.5-10.[address] [place] [address] [phone] Red Blood Count 4.47 10^6/uL N 4.0-5.4 Hemoglobin 13.9 g/dL N 12.0-16.0 Hematocrit 42 % N 35-47 Mean Corpuscular Volume 94 fL N 80-97 Mean Corpuscular Hemoglobin 31 pg N 27-31 Mean Corpuscular HGB Conc 33 g/dL N 31-36 Red Cell Distribution Width 14 % N 10.5-15 Platelet Count 187 10^3/uL N 150-450 Mean Platelet Volume 9 um3 N 7.4-10.4 Abs Neutrophils 3.1 10^3/uL N 1.5-7.7 Abs Lymphocytes 1.9 10^3/uL N 1.0-4.8 Abs Monocytes 0.6 10^3/uL N 0-0.8 Abs Eosinophils 0.2 10^3/uL N 0-0.6 Abs Basophils 0 10^3/uL N 0-0.2 Abs Nucleated RBC 0 10^3/uL N Granulocyte % 53.4 % N 38-83 Lymphocyte % 32.8 % N 25-47 Monocyte % 10.5 % High 1-9 Eosinophil % 2.8 % N 0-6 Basophil % 0.5 % N 0-2 Nucleated Red Blood Cells % 0.1 N Lipid Profile 11/19/2015 [facility] Triglycerides 102 mg/dL N 14 (Trig/Chol/HDL) [address] [place] [address] [phone] Cholesterol 155 mg/dL N 15 HDL Cholesterol 45.9 mg/dL N 16 LDL Cholesterol 89 mg/dL N 17 Basic Metabolic Panel 11/19/2015 [facility] Sodium 139 mmol/L N 133-[address] [place] [address] [phone] Potassium 4.4 mmol/L N 3.5-5.0 Chloride 107 mmol/L N 101-111 Co2 Carbon Dioxide 26 mmol/L N 22-32 Anion Gap 6 mmol/L N 2-11 Glucose 105 mg/dL High 70-100 Blood Urea Nitrogen 16 mg/dL N 6-24 Creatinine 0.97 mg/dL High 0.51-0.95 BUN/Creatinine Ratio 16.5 N 8-20 Calcium 9.0 mg/dL N 8.6-10.3 Egfr Non- 63.9 N >60 Egfr 82.2 N >60 18 Laboratory test 11/19/2015 [facility] TSH (Thyroid 0.30 Low 0.34-5.60 [address] Stim Horm) ?IU/[place] [address] [phone] CBC Auto Diff 03/14/2015 [facility] White Blood 8.8 N 4.8- 10.[address] Count 10^3/[place] [address] [phone] Red Blood Count 4.25 10^6/uL N 4.0-5.4 Hemoglobin 13.6 g/dL N 12.0-16.0 Hematocrit 40 % N 35-47 Mean Corpuscular Volume 94 fL N 80-97 Mean Corpuscular Hemoglobin 32 pg High 27-31 Mean Corpuscular HGB Conc 34 g/dL N 31-36 Red Cell Distribution Width 14 % N 10.5-15 Platelet Count 167 10^3/uL N 150-450 Mean Platelet Volume 9 um3 N 7.4-10.4 Abs Neutrophils 6.3 10^3/uL N 1.5-7.7 Abs Lymphocytes 1.7 10^3/uL N 1.0-4.8 Abs Monocytes 0.6 10^3/uL N 0-0.8 Abs Eosinophils 0.1 10^3/uL N 0-0.6 Abs Basophils 0.1 10^3/uL N 0-0.2 Abs Nucleated RBC 0.01 10^3/uL N Granulocyte % 71.8 % N 38-83 Lymphocyte % 19.5 % Low 25-47 Monocyte % 6.7 % N 1-9 Eosinophil % 1.2 % N 0-6 Basophil % 0.8 % N 0-2 Nucleated Red Blood Cells % 0.1 N Comp Metabolic Panel 03/14/2015 [facility] Sodium 137 mmol/L N 133-145 [address] [place] [address] [phone] Potassium 4.0 mmol/L N 3.5-5.0 Chloride 109 mmol/L N 101-111 Co2 Carbon Dioxide 22 mmol/L N 22-32 Anion Gap 6 mmol/L N 2-11 Glucose 90 mg/dL N 70-100 Blood Urea Nitrogen 14 mg/dL N 6-24 Creatinine 0.88 mg/dL N 0.51-0.95 BUN/Creatinine Ratio 15.9 N 8-20 Calcium 8.8 mg/dL N 8.6-10.3 Total Protein 6.7 g/dL N 6.4-8.9 Albumin 3.7 g/dL N 3.2-5.2 Globulin 3.0 g/dL N 2-4 Albumin/Globulin Ratio 1.2 N 1-3 Total Bilirubin 0.40 mg/dL N 0.2-1.0 Alkaline Phosphatase 69 U/L N 34-104 Alt 19 U/L N 7-52 Ast 24 U/L N 13-39 Egfr Non- 71.9 N >60 Egfr 92.5 N >60 20 Laboratory test 03/14/2015 [facility] C Reactive 12.02 mg/L High < 5.00 [address] [place] [address] [phone] CBC Auto Diff 01/17/2015 [facility] White Blood 8.9 N 4.8- 10.[address] Count 10^3/[place] [address] [phone] Red Blood Count 4.57 10^6/uL N 4.0-5.4 Hemoglobin 14.4 g/dL N 12.0-16.0 Hematocrit 43 % N 35-47 Mean Corpuscular Volume 93 fL N 80-97 Mean Corpuscular Hemoglobin 32 pg High 27-31 Mean Corpuscular HGB Conc 34 g/dL N 31-36 Red Cell Distribution Width 13 % N 10.5-15 Platelet Count 283 10^3/uL N 150-450 Mean Platelet Volume 8 um3 N 7.4-10.4 Abs Neutrophils 5.4 10^3/uL N 1.5-7.7 Abs Lymphocytes 2.6 10^3/uL N 1.0-4.8 Abs Monocytes 0.7 10^3/uL N 0-0.8 Abs Eosinophils 0.1 10^3/uL N 0-0.6 Abs Basophils 0.1 10^3/uL N 0-0.2 Abs Nucleated RBC 0.01 10^3/uL N Granulocyte % 60.9 % N 38-83 Lymphocyte % 29.2 % N 25-47 Monocyte % 7.7 % N 1-9 Eosinophil % 1.3 % N 0-6 Basophil % 0.9 % N 0-2 Nucleated Red Blood Cells % 0.1 N Comp Metabolic Panel 01/17/2015 [facility] Sodium 135 mmol/L N 133-[address] [place] [address] [phone] Potassium 3.9 mmol/L N 3.5-5.0 Chloride 112 mmol/L High 101-111 Co2 Carbon Dioxide 15 mmol/L Low 22-32 Anion Gap 8 mmol/L N 2-11 Glucose 95 mg/dL N 70-100 Blood Urea Nitrogen 22 mg/dL N 6-24 Creatinine 1.08 mg/dL High 0.51-0.95 BUN/Creatinine Ratio 20.4 High 8-20 Calcium 9.6 mg/dL N 8.6-10.3 Total Protein 7.6 g/dL N 6.4-8.9 Albumin 4.4 g/dL N 3.2-5.2 Globulin 3.2 g/dL N 2-4 Albumin/Globulin Ratio 1.4 N 1-3 Total Bilirubin 0.40 mg/dL N 0.2-1.0 Alkaline Phosphatase 78 U/L N 34-104 Alt 24 U/L N 7-52 Ast 22 U/L N 13-39 Egfr Non- 56.8 N >60 Egfr 73.0 N >60 22 Laboratory test 01/17/2015 [facility] Topomax 12.0 N 2.0 - [address] (Topiramate) g/mL 20.0 [place] [address] [phone] Laboratory test 01/17/2015 [facility] Vitamin D Total 11.6 ng/ mL Low 30-[address] 25(Oh) [place] [address] [phone] CBC Auto Diff 07/24/2014 [facility] White Blood 5.6 N 4.8- 10.[address] Count 10^3/[place] [address] [phone] Red Blood Count 4.44 10^6/uL N 4.0-5.4 Hemoglobin 13.8 g/dL N 12.0-16.0 Hematocrit 40 % N 35-47 Mean Corpuscular Volume 90 fL N 80-97 Mean Corpuscular Hemoglobin 31 pg N 27-31 Mean Corpuscular HGB Conc 35 g/dL N 31-36 Red Cell Distribution Width 13 % N 10.5-15 Platelet Count 197 10^3/uL N 150-450 Mean Platelet Volume 8 um3 N 7.4-10.4 Abs Neutrophils 3.5 10^3/uL N 1.5-7.7 Abs Lymphocytes 1.5 10^3/uL N 1.0-4.8 Abs Monocytes 0.5 10^3/uL N 0-0.8 Abs Eosinophils 0.1 10^3/uL N 0-0.6 Abs Basophils 0 10^3/uL N 0-0.2 Abs Nucleated RBC 0 10^3/uL N Granulocyte % 62.4 % N 38-83 Lymphocyte % 26.3 % N 25-47 Monocyte % 8.6 % N 1-9 Eosinophil % 2.2 % N 0-6 Basophil % 0.5 % N 0-2 Nucleated Red Blood Cells % 0.1 N Comp Metabolic Panel 07/24/2014 [facility] Sodium 135 mmol/L N 133-[address] [place] [address] [phone] Potassium 4.2 mmol/L N 3.5-5.0 Chloride 105 mmol/L N 101-111 Co2 Carbon Dioxide 26 mmol/L N 22-32 Anion Gap 4 mmol/L N 2-11 Glucose 95 mg/dL N 70-100 Blood Urea Nitrogen 13 mg/dL N 6-24 Creatinine 0.85 mg/dL N 0.51-0.95 BUN/Creatinine Ratio 15.3 N 8-20 Calcium 9.3 mg/dL N 8.6-10.3 Total Protein 7.5 g/dL N 6.4-8.9 Albumin 4.0 g/dL N 3.2-5.2 Globulin 3.5 g/dL N 2-4 Albumin/Globulin Ratio 1.1 N 1-3 Total Bilirubin 0.50 mg/dL N 0.2-1.0 Alkaline Phosphatase 81 U/L N 34-104 Alt 16 U/L N 7-52 Ast 17 U/L N 13-39 Egfr Non- 74.9 N >60 Egfr 96.3 N >60 25 Laboratory test 07/24/2014 [facility] TSH (Thyroid 0.72 N 0.34 -5.60 [address] Stimulating IU/[place] [address] Horm) [phone] Free T3 3.20 pg/mL N 2.5-3.9 27 Free T4 0.88 ng/mL N 0.61-1.12 28 Laboratory test 05/09/2014 [facility] Blood Urea 8 mg/dL N 6- [address] [place] [address] [phone] Creatinine 05/09/2014 [facility] Creatinine 0.79 mg/dL N 0.51- 0.[address] [place] [address] [phone] Egfr Non- 81.9 N >60 Egfr 105.3 N >60 29 Lipid Profile 12/06/2013 [facility] Triglycerides 107 mg/dL N 30 (Trig/Chol/HDL) [address] [place] [address] [phone] Cholesterol 164 mg/dL N 31 HDL Cholesterol 42.5 mg/dL N 32 LDL Cholesterol 100 mg/dL N 33 Vitamin D, 25 12/06/2013 [facility] 25-Hydroxy Vitamin 9.2 ng/ mL N Hydroxy [address] [address] [place] [address] [phone] 25-Hydroxy Vitamin D3 7.2 ng/mL N 25-Hydroxy Vitamin D Total 16 ng/mL Abnormal 34 6Mamu (6-Monoacetylmorphine) 11/22/2013 [facility] Creatinine 65.1 mg/dL N [address] [place] [address] [phone] Specific [place] 1.007 N pH 6.8 N Oxidants Negative N 35 6Mam(6-Monoacetylmorphine) Negative ng/mL N Cutoff: 5 6Mam Interpretation Negative. N 36 Buprenorphine 11/22/2013 [facility] Buprenorphine Negative N Negative [address] ng/[place] [address] [phone] Norbuprenorphine Negative ng/mL N Negative 37 1 Because ethnic data is not always [...] developed and its performance characteristics determined by [facility] in a manner consistent with CLIA requirements. This test has not been cleared or approved by the U.S. Food and Drug Administration. Test Performed by: [facility] - [address] [address] 3 REFERENCE VALUE Reference values depend on clinical use: Anticonvulsant: 5.0-20.0 mcg/mL Psychiatric: 2.0-8.0 mcg/mL ADDITIONAL INFORMATION This test was developed and its performance characteristics determined by [facility] in a manner consistent with CLIA requirements. This test has not been cleared or approved by the U.S. Food and Drug Administration. Test Performed by: [facility] - [address] [address] 4 Normally menstruating females - Follicular phase 3 - 9 - Mid-cycle peak 4 - 23 - Luteal phase 1 - 6 Postmenopausal females 16 - 114 5 Normally menstruating females - Follicular Phase 1 - 18 - Mid-Cycle Peak 24 - 105 - Luteal Phase 0.6 - 20 Postmenopausal females 15 - 62 6 AM 8.7-22.4 PM <10 7 [facility] Severe Sepsis and Septic Shock Management Bundle Measure requires all lactic acids initially measuring >2.0mmol/L be repeated. 8 Junior Oracle Dba: [id number] GREG BOOTHE 9 <5.0 Negative 5.0 - 25.0 Indeterminate (Repeat testing recommended after 72 hours) >25.0 Positive Perimenopausal women can display HCG levels of up to 20 mIU/mL 10 Therapeutic concentration: <50 ug/mL Toxic concentration: >120 ug/mL 11 Acute inflammation: >10.00 12 Reference Range and Interpretation: TnI (ng/mL) Interpretation Less Than 0.03 ng/mL Not supportive of diagnosis of CT 0.03 - 0.50 ng/mL Indeterminate: suggest serial studies if clinically indicated. Greater than 0.5 ng/mL Consistent with diagnosis of CT 13 Because ethnic data is not always readily [...] 15-29 5 Kidney failure <15 (or dialysis) 14 Desirable <150 Borderline high 150-199 High 200-499 Very High >500 15 Desirable <200 Borderline high 200-239 High >239 16 Low <40 Desirable: 40-60 High: >60 17 Desirable: <100 mg/dL Near Optimal: 100-129 mg/dL Borderline High: 130-159 mg/dL High: 160-189 mg/dL Very High: >189 mg/dL 18 Because ethnic data is not always readily [...] 15-29 5 Kidney failure <15 (or dialysis) 19 FASTING 10 HOUR 20 Because ethnic data is not always readily [...] 15-29 5 Kidney failure <15 (or dialysis) 21 Acute inflammation: >10.00 22 Because ethnic data is not always readily [...] 15-29 5 Kidney failure <15 (or dialysis) 23 Test Performed by: [place] [address] Hose Coupling Joiner: Yahir Bae II, M.D., Ph.D. 24 FASTING 25 Because ethnic data is not always readily [...] 15-29 5 Kidney failure <15 (or dialysis) 26 FASTING 27 FASTING 28 FASTING 29 Because ethnic data is not always readily [...] 15-29 5 Kidney failure <15 (or dialysis) 30 Desirable <150 Borderline high 150-199 High 200-499 Very High >500 31 Desirable <200 Borderline high 200-239 High >239 32 Low <40 Desirable: 40-60 High: >60 33 Desirable <100 Near Optimal 100-129 Borderline high 130-159 High 160-189 Very High >189 34 Interpretation: 10-19 ng/mL (mild to moderate deficiency) -- REFERENCE VALUE -- 25-HYDROXY D TOTAL (D2+D3) Optimum levels in the healthy population are 20-50, patients with bone disease may benefit from higher levels within this range. Test Performed by: [place] [address] Hose Coupling Joiner: Damaso Noland III, M.D. 35 Test Performed by: [place] [address] Hose Coupling Joiner: Damaso Noland III, M.D. 36 Test Performed by: [place] [address] Hose Coupling Joiner: Damaso Noland III, M.D. 37 Test Performed by: [place] [address] Hose Coupling Joiner: Gisselle Bryson, Ph.D. Procedures Date Code Description Status 03/22/2018 27866 EKG Tracing & Interpretation Completed 10/25/2017 43603 EEG Monitoring Computer Completed 10/24/2017 87770 EEG Monitoring Computer Completed 12/31/2016 36502 EKG Tracing & Interpretation Completed 12/30/2015 96448 EEG Recording Awake & Drowsy Completed 12/03/2015 46169 EEG Recording Awake & Drowsy Completed 12/03/2015 63247 Treadmill Interp/Report Only Completed 12/03/2015 11488 Stress Test Supervsn W/Out I/R Completed 11/27/2015 49759 Holter Monitor Review (24 hr)dr review & interp only Completed 11/26/2015 08324 ECG Monitor/Recording W/Visual Superimposition Scanning Completed 11/21/2015 53572 ECHO Transthoracic, Real-Time 2D With Doppler And Color Completed Flow 11/04/2015 94355 EKG Tracing & Interpretation Completed 01/29/2009 27749 ECHO Transthoracic, Real-Time 2D With Doppler And Color Completed Flow 01/26/2008 44034 ECHO/Stress Completed 01/26/2008 38772 ECHO/Stress Completed 01/26/2008 53883 ECHO/Stress Completed 01/26/2008 66551 Stress Test Completed 01/26/2008 42321 Stress Test Completed 11/23/2007 76234 EKG Tracing & Interpretation Completed 11/23/2007 44592 EKG Tracing & Interpretation Completed 11/08/2007 31095 Color Doppler Completed 11/08/2007 73278 Pulse Doppler & Continuous Wave Completed 11/08/2007 76185 Pulse Doppler & Continuous Wave Completed 11/08/2007 02718 Echocardiogram Completed Encounters Type Date Location Provider Dx Diagnosis Office Visit 06/02/2018 [place] [facility] Corey Wilson, G40.219 Local- rel symptc 3:45p [facility] Jhaveri epi w cmplx part seiz, ntrct, w/o stat epi G43.009 Migraine w/o aura, not intractable, w/o status migrainosus R11.2 Nausea with vomiting, unspecified Office Visit 04/03/2018 [place] G43.009 Migraine w/o 3:15p [facility]rolog[facility] Shakila Wilson aura, not [facility] intractable, w/o status migrainosus 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 F17.210 Nicotine 1:40p [facility] Shakila Thao dependence, cigarettes, uncomplicated E66.9 Obesity, unspecified R00.2 Palpitations I10 Essential (primary) hypertension Office Visit 02/20/2018 [place] Corey Wilson, G40.219 Local-rel 10:30a [place] Jhaveri symptc epi w [facility] cmplx part seiz, ntrct, w/o stat epi G43.009 Migraine w/o aura, not intractable, w/o status migrainosus Office Visit 09/22/2017 10:00a [place] Vito Senior G40.219 Local-rel [facility] cm[facility] part seiz, ntrct, w/o stat epi Office Visit 12/31/2016 8:40a [place] [facility] Araceli SVivi R60.0 Localized edema Shakila Thao I10 Essential (primary) hypertension R00.2 Palpitations F17.210 Nicotine dependence, cigarettes, uncomplicated R94.31 Abnormal electrocardiogram [ECG] [EKG] Office Visit 11/16/2016 8:45a [place] Vito Senior G40.219 Local-rel [facility] Lee M.D. symptc epi w cmplx part seiz, ntrct, w/o stat epi G43.009 Migraine w/o aura, not intractable, w/o status migrainosus Office Visit 08/25/2016 8:00a [facility] Internal Gilmer Gomez, R60.0 Localized edema Medicine - [place] [address] I83.811 Varicose veins of right lower extremities with pain M25.551 Pain in right hip M54.5 Low back pain Office Visit 06/17/2016 8:30a [place] Vito Senior G40.019 Local- rel idio [facility] Lee M.D. epi w seiz of loc onset, ntrct, w/o stat epi G43.009 Migraine w/o aura, not intractable, w/o status migrainosus Office Visit 04/30/2016 1:00p [facility] Gilmer Gomez, I10 Essential ( primary) Medicine - [place] P[employer]EL ADMINISTR[address] hypertension Rd G43.009 Migraine w/o aura, not intractable, w/o status migrainosus Z72.0 Tobacco use Office Visit 03/09/2016 [facility] Gilmer Gomez, G43.009 Migraine w/o aura, 11:40a Medicine - [place] PERSONNEL ADMINISTRATOR not intractable, Rd w/o status migrainosus Office Visit 12/25/2015 [place] [place] R00.2 Palpitations 10:00a Cardiology Shakila Thao I10 Essential (primary) hypertension I34.0 Nonrheumatic mitral (valve) insufficiency E66.9 Obesity, unspecified Z72.0 Tobacco use Office Visit 12/18/2015 [facility] G40.409 Oth generalized 2:00p Neurologic Shakila Lee epilepsy, not [facility] intractable, w/o stat epi Office Visit 11/04/2015 [place] I10 Essential 9:20a Cardiology Shakila Thao (primary) hypertension I34.0 Nonrheumatic mitral (valve) insufficiency F17.210 Nicotine dependence, cigarettes, uncomplicated E66.9 Obesity, unspecified R00.2 Palpitations R06.02 Shortness of breath Office Visit 10/21/2015 8:00a [facility] Internal Gilmer Gomez, I10 Essential ( primary) Medicine - [place] PERSON[employer] ADMINISTR[address] hypertension Rd I34.0 Nonrheumatic mitral (valve) insufficiency F17.210 Nicotine dependence, cigarettes, uncomplicated E66.9 Obesity, unspecified F43.23 Adjustment disorder with mixed anxiety and depressed mood Office Visit 04/14/2015 10:30a [facility] Duane Pate, 401.9 Hypertension Unspec Medicine PERSON[employer]EL ADMINISTRATOR 465.8 Upper Respiratory Infections Acute Other Multiple Sites 465.9 URI Upper Respiratory Infections Acute Unspec Sites Office Visit 03/25/2015 10:00a [facility] Duane Pate, 730.00 Osteomyelitis Acute Medicine PERSONNEL ADMINISTRATOR Site Unspec Office Visit 01/09/2015 11:00a [place] Vito Senior 345.41 Local- Related Services Of Tika Frankel M.D. W/Intractable Epilepsy 345.90 Epilepsy Unspec W/O Intractable Office Visit 10/14/2014 10:50a [facility] Internal Gisel 401.1 Hypertension Benign Medicine Harrington, M.D. 268.9 Vitamin D Deficiency Unspec 719.46 Pain Joint Lower Leg 626.2 Menstruation Excessive Or Frequent 345.90 Epilepsy Unspec W/O Intractable Office Visit 07/29/2014 9:50a [facility] [place] Juany, 783.1 Weight Gain Medicine M.DVivi Abnormal 401.1 Hypertension Benign 338.4 Chronic Pain Syndrome 626.2 Menstruation Excessive Or Frequent Office Visit 07/08/2014 11:50a [facility] [place] Juany, 783.1 Weight Gain Medicine M.DVivi Abnormal 401.9 Hypertension Unspec Office Visit 05/06/2014 11:50a [facility] Internal [place] 782.2 Swelling Mass Or Medicine Shakila Harrington Lump Localized Superfical Office Visit 12/26/2013 2:10p [facility] Internal [place] 401.1 Hypertension Benign Medicine Shakila Harrington 268.9 Vitamin D Deficiency Unspec 305.1 Tobacco Use Disorder 715.09 Osteoarthrosis Generalized Multiple Sites Office Visit 11/14/2013 1:10p [facility] Internal [place] 401.1 Hypertension Benign Tish Harrington M.D. 305.1 Tobacco Use Disorder 268.9 Vitamin D Deficiency Unspec V77.91 Screening For Lipoid Disorders Office Visit 02/02/2008 2:10p [place] [facility] Araceli S. 424.0 Mitral Valve Shakila Thao Disorder 786.05 Shortness Of Breath 785.1 Palpitations 785.0 Tachycardia Unspec 427.69 Premature Beats Other 427.61 Premature Beats Supraventricular Office Visit 11/23/2007 10:20a [place] [place] [facility] Araceli SVivi 424.0 Mitral Valve Shakila Thao Disorder 785.0 Tachycardia Unspec 785.1 Palpitations 786.05 Shortness Of Breath 786.50 Pain Chest Unspec 794.31 Electrocardiogram (ECG) (EKG) Abnormal Plan of Treatment Future Appointment(s):03/16/2019 3:00 pm - Corey Wilson M.D. at [place] [facility]12/12/2018 - Corey Wilson M.D.G40.219 Localization-related (focal) (partial) symptomatic epilepsyRecommendations:1. Get labs done in am before taking meds 2. Call me 1 week after labsG43.009 Migraine without aura, not intractable, without status migra
--- NOTE | 2019-01-07 16:56 | ED ---
Abdominal Pain/Female - HPI Summary HPI Summary: This patient is a 43 year old F presenting to [facility] with a chief complaint of upper abdominal pain for the past week. Pain worsened with standing. Pain rated 3/10 in severity. Reports decreased appetite. Denies n/v/d. Reports chronic back pain from a previous injury years ago. PMHx of pancreatic and liver failure. - History of Current Complaint Chief Complaint: EDAbdPain Stated Complaint: "STOMACH PAIN PER PT" Time Seen by Provider: 01/07/19 16:44 Hx Obtained From: Patient Hx Last Menstrual Period: 08/05/16 Onset/Duration: Lasting Days Timing: Constant Severity Currently: Mild Pain Intensity: 3 Pain Scale Used: 0-10 Numeric Location: Discrete At: RUQ, Discrete At: LUQ Radiates: No Aggravating Factor(s): Other: - standing Alleviating Factor(s): Position Associated Signs and Symptoms: Positive: Decreased Appetite. Negative: Nausea, Vomiting, Diarrhea Allergies/Adverse Reactions: Allergies Allergy/AdvReac Type Severity Reaction Status Date / Time acetaminophen Allergy Rash Verified 01/07/19 16:27 [From Phrenilin] butalbital [From Phrenilin] Allergy Rash Verified 01/07/19 16:27 Home Medications: Home Medications Suboxone 12 mg-3 mg Sl Film 1 dose SL FILM DAILY 01/07/19 [History Confirmed ] Suboxone 8 mg-2 mg Sl Film 1 dose SL TID 01/07/19 [History Confirmed 01/07/19] PMH/Surg Hx/FS Hx/Imm Hx Endocrine/Hematology History: Denies: Hx Diabetes, Hx Systemic Lupus Erythematosus, Hx Thyroid Disease Cardiovascular History: Reports: Hx Hypertension, Other Cardiovascular Problems/ Disorders - "irregular heart beat" and "leaky valve" Denies: Hx Congestive Heart Failure, Hx Pacemaker/ICD Respiratory History: Denies: Hx Asthma, Hx Chronic Obstructive Pulmonary Disease (COPD) GI History: Denies: Hx Ulcer History: Denies: Hx Dialysis, Hx Renal Disease Musculoskeletal History: Reports: Hx Rheumatoid Arthritis Sensory History: Denies: Hx Hearing Aid Neurological History: Reports: Hx Seizures, Other Neuro Impairments/Disorders - hx siezures Psychiatric History: Reports: Hx Depression Denies: Hx Panic Disorder - Cancer History Hx Chemotherapy: No Infectious Disease History: No Infectious Disease History: Denies: Hx Clostridium Difficile, Hx Hepatitis, Hx Human Immunodeficiency Virus (HIV), Hx of Known/Suspected MRSA, Hx Shingles, Hx Tuberculosis, Traveled Outside the [place] in Last 30 Days - Family History Known Family History: Positive: Cardiac Disease, Hypertension, Diabetes, Other - father - pancreatic cancer - Social History Alcohol Use: None Substance Use Type: Reports: None Hx Tobacco Use: Yes Smoking Status (MU): Heavy Every Day Tobacco Smoker Type: Cigarettes Amount Used/How Often: 1 ppd or less Have You Smoked in the Last Year: Yes Review of Systems Gastrointestinal: Other - decreased appetite Positive: Abdominal Pain. Negative: Vomiting, Diarrhea, Nausea Positive: Myalgia All Other Systems Reviewed And Are Negative: Yes Physical Exam - Summary Physical Exam Summary: Appearance: The patient is well-nourished in no acute distress and in no acute pain. Skin: The skin is warm and dry and skin color reflects adequate perfusion. HEENT: The head is normocephalic and atraumatic. The pupils are equal and reactive. The conjunctivae are clear and without drainage. Nares are patent and without drainage. Mouth reveals moist mucous membranes and the throat is without erythema and exudate. The external ears are intact. The ear canals are patent and without drainage. The tympanic membranes are intact. Neck: The neck is supple with full range of motion and non-tender. There are no carotid bruits. There is no neck vein distension. Respiratory: Chest is non-tender. Lungs are clear to auscultation and breath sounds are symmetrical and equal. Cardiovascular: Heart is regular rate and rhythm. There is no murmur or rub auscultated. There is no peripheral edema and pulses are symmetrical and equal. Abdomen: The abdomen is soft and non-tender. There are normal bowel sounds heard in all four quadrants and there is no organomegaly palpated. Musculoskeletal: There is no back tenderness noted. Extremities are non-tender with full range of motion. There is good capillary refill. There is no peripheral edema or calf tenderness elicited. Neurological: Patient is alert and oriented to person, place and time. The patient has symmetrical motor strength in all four extremities. Cranial nerves are grossly intact. Deep tendon reflexes are symmetrical and equal in all four extremities. Psychiatric: The patient has an appropriate affect and does not exhibit any anxiety or depression Triage Information Reviewed: Yes Vital Signs On Initial Exam: Initial Vitals Temp Pulse Resp BP Pulse Ox 99.0 F 68 18 160/101 99 05/19/19 16:25 01/07/19 16:25 01/07/19 16:25 01/07/19 16:25 01/07/19 16:25 Vital Signs Reviewed: Yes Diagnostics - Vital Signs Vital Signs Temp Pulse Resp BP Pulse Ox 01/07/19 16:25 99.0 F 68 18 160/101 99 - Laboratory Result Diagrams: 01/07/19 17:18 01/07/19 17:18 Lab Statement: Any lab studies that have been ordered have been reviewed, and results considered in the medical decision making process. Abdominal Pain Fem Course/Dx - Course Course Of Treatment: Ms. Chávez presented with a very unusual history. She has some epigastric pain that is worse when she is up and moving around for a few days. Feels better when she lays flat. She was nontender. She had no CVA tenderness or back pain. Family history and exam I felt that this was likely a radicular pain. Her urine did come back equivocal and I am going to treat it. I do not suspect that she has kidney stones As that does not fit with the history and physical. - Diagnoses Provider Diagnoses: UTI (urinary tract infection), Lumbar radiculopathy Discharge - Sign-Out/Discharge Documenting (check all that apply): Patient Departure - discharge Patient Received Moderate/Deep Sedation with Procedure: No - Discharge Plan Condition: Stable Disposition: HOME Prescriptions: Nitrofurantoin Monohyd/M-Cryst [Macrobid 100 mg Capsule] 100 mg PO BID #10 cap traMADol TAB* [Ultram*] 50 mg PO Q6HR PRN #20 tab MDD 4 PRN Reason: Pain Patient Education Materials: Urinary Tract Infection in Women (ED), Lumbar Radiculopathy (ED) Referrals: Luiz Velarde MD [Primary Care Provider] - 1 Week Additional Instructions: RETURN TO THE EMERGENCY DEPARTMENT FOR CHANGING OR WORSENING SYMPTOMS. - Billing Disposition and Condition Condition: STABLE Disposition: Home - Attestation Statements Document Initiated by Scribe: Yes Documenting Scribe: Michelle Martinez Provider For Whom Scribe is Documenting (Include Credential): Rubens Siddiqui MD Scribe Attestation: IMichelle, scribed for Rubens Siddiqui MD on 01/07/19 at 2115. Scribe Documentation Reviewed: Yes Provider Attestation: The documentation as recorded by the denveribe, Michelle Martinez accurately reflects the service I personally performed and the decisions made by me, Rubens Siddiqui MD Status of Scribjoaquin Document: Viewed
[2019-01-07 17:26] LABS: ABS Eosinophils 0.1 10^3/ul (0-0.6); ABS Lymphocytes 2.6 10^3/ul (1.0-4.8); ABS Monocytes 0.6 10^3/ul (0-0.8); ABS Neutrophils 3.8 10^3/ul (1.5-7.7); Hematocrit 44 % (35-47); Hemoglobin 15.1 g/dL (12.0-16.0); Lymphocyte % 36.7 %; Mean Corpuscular HGB Conc 34 g/dL (31-36); Mean Corpuscular Hemoglobin 31 pg (27-31); Mean Corpuscular Volume 90 fL (80-97); Mean Platelet Volume 7.8 fL (7.4-10.4); Nucleated Red Blood Cells % 0.5; Platelet Count 191 10^3/uL (150-450); Red Blood Count 4.86 10^6 /uL (3.70-4.87); Red Cell Distribution Width 13 % (10.5-15); White Blood Count 7.1 10^3/uL (3.5-10.8)
[2019-01-07 17:41] LABS: ALT 16 U/L (7-52); AST 15 U/L (13-39); Albumin 4.3 g/dL (3.2-5.2); Albumin/Globulin Ratio 1.4 (1-3); Alkaline Phosphatase 55 U/L (34-104); Anion Gap 6 mmol/L (2-11); BUN/Creatinine Ratio 15.3 (8-20); Blood Urea Nitrogen 18 mg/dL (6-24); C Reactive Protein < 1.00 mg/L (<8.01); CO2 Carbon Dioxide 22 mmol/L (22-32); Calcium 9.8 mg/dL (8.6-10.3); Chloride 111 mmol/L (101-111); EGFR African American 60.8 (>60); EGFR Non-African American 50.2 (>60); Glucose 101 mg/dL (70-100); Potassium 4.2 mmol/L (3.5-5.0); Sodium 139 mmol/L (135-145); Total Protein 7.3 g/dL (6.4-8.9)
[2019-01-07 18:09] LABS: Urine Appearance Cloudy; Urine Bacteria Absent (Absent); Urine Bilirubin Negative (Negative); Urine Blood 1+ (Negative); Urine Color Amber; Urine Glucose Negative (Negative); Urine Ketones Negative (Negative); Urine Nitrite Negative (Negative); Urine Protein 1+(30 mg/dL) (Negative); Urine Red Blood Cell 2+(6-10/hpf) (Absent); Urine Specific Gravity 1.036 (1.010-1.030); Urine Squamous Epithelial Cell Present (Absent); Urine Urobilinogen Positive (Negative); Urine White Blood Cell 1+(6-10/hpf) (Absent)
[2019-01-07 19:55] VITALS: BP 152/93
== END 2019-01-07 19:54 | disposition home or self-care (01) ==
LOC: ED 16:16
DX: N39.0 Urinary tract infection, site not specified (principal); M54.16 Radiculopathy, lumbar region; M06.9 Rheumatoid arthritis, unspecified; Z88.6 Allergy status to analgesic agent; Z88.8 Allergy status to other drugs, medicaments and biological substances; F17.210 Nicotine dependence, cigarettes, uncomplicated
CPT/HCPCS: 36415; 72131; 80053; 81003; 81015; 83690; 85025; 86140; 87086; 99282

== ENCOUNTER 2020-11-27 09:30 | Inpatient (IN) ==
[2020-11-27 10:05] LABS: ABS Eosinophils 0.2 10^3/ul (0-0.6); ABS Lymphocytes 2.8 10^3/ul (1.0-4.8); ABS Monocytes 0.5 10^3/ul (0-0.8); ABS Neutrophils 2.5 10^3/ul (1.5-7.7); Eosinophil % 2.9 %; Hematocrit 45 % (35-47); Hemoglobin 15.6 g/dL (12.0-16.0); Lymphocyte % 45.5 %; Mean Corpuscular HGB Conc 35 g/dL (31-36); Mean Corpuscular Hemoglobin 32 pg (27-31); Mean Corpuscular Volume 92 fL (80-97); Mean Platelet Volume 8.5 fL (7.4-10.4); Nucleated Red Blood Cells % 0.1; Platelet Count 170 10^3/uL (150-450); Red Cell Distribution Width 13 % (10-15)
[2020-11-27 10:10] LABS: INR 0.96 (0.82-1.09)
[2020-11-27 10:24] LABS: Troponin I 0.01 ng/mL (<0.03)
[2020-11-27 10:25] LABS: Albumin 4.1 g/dL (3.2-5.2); Albumin/Globulin Ratio 1.3 (1-3); BUN/Creatinine Ratio 13.1 (8-20); Calcium 9.8 mg/dL (8.6-10.3); EGFR African American 73.7 (>60); EGFR Non-African American 60.9 (>60); Globulin 3.1 g/dL (2-4); Potassium 3.6 mmol/L (3.5-5.0); Total Bilirubin 0.4 mg/dL (0.2-1.0); Total Protein 7.2 g/dL (6.4-8.9)
[2020-11-27 13:02] LABS: Troponin I 0.04 ng/mL (<0.03)
[2020-11-27] MEDS ORDERED: Magnesium Sulfate 2 gm BAG 2 GM/50 ML BAG IVPB ONE (13:26)
[2020-11-27 13:28] LABS: Magnesium 1.8 mg/dL (1.9-2.7)
[2020-11-27] MEDS: Nicotine PATCH 21 MG/24 HR PATCH TRANSDERM SCH (13:44)
[2020-11-27] MEDS ORDERED: Nitro 2% OINT (Nitroglycerin) 1 INCH/PAK TOPICAL ONE (13:46)
[2020-11-27] MEDS ORDERED: Heparin 5000 UNITS/ML 1 mL VIAL IV SCH (14:00)
[2020-11-27] MEDS ORDERED: NS 0.9% 1000 ml BAG 1,000 ML IV SCH ×2 (14:00→15:45)
[2020-11-27] MEDS ORDERED: Heparin DRIP 25,000 UNITS BAG 25,000 UNITS/500 ML BAG IV SCH (14:00)
[2020-11-27] MEDS ORDERED: Midazolam 5 mg/5 ml VIAL 1 mg/ml 5 ml VIAL (5 mg) ONE (14:15)
[2020-11-27] MEDS ORDERED: Lidocaine 1% VIAL 10 MG/ML VIAL ONE (14:15)
[2020-11-27] MEDS ORDERED: VERAPAMIL 2.5 MG/ML 2 ML VIAL ** 5 mg/2 ml ONE (14:15)
[2020-11-27] MEDS ORDERED: fentaNYL 100 mcg/2 ml 50 MCG/ML VIAL ONE (14:15)
[2020-11-27] MEDS ORDERED: nitroGLYCERIN DRIP 25,000 MCG/250 ML BTL ONE (14:15)
[2020-11-27] MEDS ORDERED: Heparin 1,000 UNIT/ML 10 ml (10,000 UNITS) CATHLAB/DIALYSIS ONE (14:15)
[2020-11-27] MEDS ORDERED: Heparin 2 UNITS/ML 1000 mls 2,000 ML IV ONE (14:15)
[2020-11-27] MEDS ORDERED: Iohexol 350 (CONTRAST) 200 ML MDV IV ONE ×2 (14:15→15:10)
[2020-11-27 14:34] LABS: Activated Partial Thrombo Time 29.6 seconds (26.0-38.0)
[2020-11-27] MEDS ORDERED: Labetalol IV 5 MG/ML 20 ml VIAL ONE (15:00)
[2020-11-27] MEDS ORDERED: Bivalirudin 250 MG VIAL ONE (15:11)
[2020-11-27] MEDS ORDERED: LORazepam 2 mg VIAL 1 ml IV PUSH ONE (15:59)
[2020-11-27] MEDS ORDERED: Lorazepam PYXIS KEY PRN (15:59)
[2020-11-27] MEDS ORDERED: Lorazepam PYXIS KEY ONE (16:14)
[2020-11-27 16:45] LABS: Troponin I 0.13 ng/mL (<0.03)
[2020-11-27 22:10] LABS: Troponin I 0.22 ng/mL (<0.03)
[2020-11-28 04:10] LABS: ABS Eosinophils 0.1 10^3/ul (0-0.6); ABS Lymphocytes 2.9 10^3/ul (1.0-4.8); ABS Monocytes 0.6 10^3/ul (0-0.8); ABS Neutrophils 3.7 10^3/ul (1.5-7.7); Eosinophil % 1.8 %; Hematocrit 42 % (35-47); Hemoglobin 14.6 g/dL (12.0-16.0); Lymphocyte % 39.4 %; Mean Corpuscular HGB Conc 35 g/dL (31-36); Mean Corpuscular Hemoglobin 32 pg (27-31); Mean Corpuscular Volume 91 fL (80-97); Mean Platelet Volume 8.6 fL (7.4-10.4); Platelet Count 160 10^3/uL (150-450); Red Blood Count 4.61 10^6 /uL (3.70-4.87); Red Cell Distribution Width 13 % (10-15); White Blood Count 7.3 10^3/uL (3.5-10.8)
[2020-11-28 04:29] LABS: Anion Gap 5 mmol/L (2-11); BUN/Creatinine Ratio 10.3 (8-20); Blood Urea Nitrogen 9 mg/dL (6-24); CO2 Carbon Dioxide 21 mmol/L (22-32); Calcium 8.7 mg/dL (8.6-10.3); Chloride 111 mmol/L (101-111); Cholesterol 158 mg/dL; EGFR African American 85.6 (>60); EGFR Non-African American 70.7 (>60); Glucose 98 mg/dL (70-100); HDL Cholesterol 42.9 mg/dL; LDL Cholesterol 92 mg/dL; Magnesium 1.9 mg/dL (1.9-2.7); Potassium 3.8 mmol/L (3.5-5.0); Sodium 137 mmol/L (135-145); Triglycerides 118 mg/dL
[2020-11-28 04:32] LABS: Troponin I 0.25 ng/mL (<0.03)
[2020-11-28] MEDS ORDERED: CMCS:Vilazodone 10 mg TAB (NF) PO SCH (09:00)
[2020-11-28] MEDS ORDERED: Perflutren Lipid Microsphere 3 ML VIAL ONE (09:14)
[2020-11-28 09:29] VITALS: BP 158/86
[2020-11-28] MEDS: Nicotine PATCH 21 MG/24 HR PATCH TRANSDERM SCH (09:44)
== END 2020-11-28 11:05 | disposition home or self-care (01) | DRG 247 ==
LOC: ED 09:30 → ICU 14:05 → ED 14:33
PROVIDERS: ADMIT Surgery Surgical Critical Care; ATTEND Internal Medicine